=== PATIENT | female | born 1990 | race African-American/Black ===

== ENCOUNTER 2016-04-12 20:36 | Emergency (ER) | payer OTHER ==
--- NOTE | 2016-04-12 21:18 | PROVIDER DOCUMENTATION ---
HPI-General Adult - General Chief Complaint: Female Stated Complaint: SPOTTING BLEEDING Time Seen by Provider: 04/12/16 21:01 Source: patient Allergies/Adverse Reactions: Patient Allergies Allergy/AdvReac Type Severity Reaction Status Date / Time Penicillins Allergy ANAPHYLAXIS Verified 04/12/16 20:46 Sulfa (Sulfonamide Allergy ANAPHYLAXIS Verified 04/12/16 20:46 Antibiotics) [Sulfa(Sulfonamide Antibiotics)] Home Medications: Home Medication List Medication Instructions Recorded Confirmed Last Taken Type Pnv Comb.no58/Iron Bisgly/FA 1 each PO QAM 03/29/16 04/12/16 04/12/16 History [ Capsule] Nitrofurantoin [place]/Macrocryst 100 mg PO BID #14 capsule 04/13/16 Unknown Rx [Macrobid] - History of Present Illness -Gen Adult Nature of Presenting Problems: Pt. is 25 yof that presents with c/o abdominal cramping for one week and states that today she began to spot. Pt. reports she is and is unsure of how far along she is. Pt. reports her last BM was today and was normal for her. Pt. is a G3, P2. Pt. denies any other symptoms at time of exam. Location of Pain/Injury: reports: abdomen. denies: head, face, mouth, neck, chest, upper extremity, hand(s), back, pelvis, genitalia, lower extremity, feet , upper body, lower body, generalized Pain Radiation: reports: no radiation Quality of Pain: reports: cramping. denies: aching, burning, dull, fullness, indigestion, pressure, sharp, stabbing, tearing, throbbing, tightness Severity: reports: mild. denies: moderate, severe Onset/Duration: reports: gradual, 1 week ago Timing: reports: still present. denies: improving, gone now, resolved prior to arrival, intermittent, constant, changing over time, getting worse Context/Activities at Onset: reports: none. denies: recent emotional stress, recent physical stress, recent trauma history, possible bad food, cold exposure , out of country travel Modifying Factors: improves with: nothing Associated Symptoms: reports: genitourinary problems. denies: anxiety, arm pain , back/neck pain, chest pain, constipation, cough, diaphoresis, diarrhea, dizziness, EENT symptoms, fatigue, fever/chills, headaches, heartburn, joint pain, loss of appetite, malaise, muscle aches, sinus congestion/drainage, nausea , rash, seizure, shortness of breath, sensory/motor loss, pain with inspiration , swelling/mass in abdomen, syncope, vomiting, weakness, trouble walking Similar Symptoms Previously?: Yes Recently seen or treated by another doctor?: No Review of Systems - Adult - REVIEW OF SYSTEMS - ADULT Constitutional: reports: see HPI. denies: chills, fever, fatique Eyes: reports: see HPI. denies: discharge, blurred vision, double vision, eye pain Ears, Nose, Mouth & Throat: reports: see HPI. denies: ear discharge, ear pain, hearing loss, sinus problem, nose pain, loose teeth, mouth/dental pain, throat swelling Cardiovascular: reports: see HPI. denies: chest pain, irregular heart rate, orthopnea, syncope Respiratory: reports: see HPI. denies: chronic cough, cough, dyspnea on exertion, hemoptysis, shortness of breath, wheezing Gastrointestinal: reports: see HPI, abdominal pain. denies: hematemesis, constipation, difficulty swallowing, frequent heartburn, nausea, vomiting Genitourinary: reports: see HPI, other (Vaginal spotting). denies: dysuria, discharge, flank pain, hematuria, hesitency, urgency Musculoskeletal: reports: see HPI. denies: bone pain, back pain, joint pain, joint swelling, muscle aches, neck pain Integumentary: reports: see HPI. denies: hives, hair loss, itching, rash, skin thickening Neurological: reports: see HPI. denies: ataxia, headache/migraines, numbness, paresthesia, seizure, tremors Psychiatric: reports: see HPI. denies: anxiety, depression, emotional problems , insomnia, panic attacks, suicidal thoughts Endocrine: reports: see HPI. denies: change in skin pigment, cold intolerance, heat intolerance, polyuria Past History - Adult - PAST MEDICAL HISTORY-ADULT Review of Records: reports: Old Records Reviewed, Nursing Assessment Review, Medications Reviewed, Social history reviewed & non-contributory. Major Childhood Illnesses: reports: denies history Cardiovascular: reports: denies history Respiratory: reports: asthma Gastrointestinal: reports: denies history Obstetrical/Gynecological: reports: ovarian cysts Genitourinary: reports: denies history Musculoskeletal: reports: denies history Neurological: reports: denies history Endocrine/Immune: reports: denies history Other Conditions: reports: denies history - PRIOR SURGERIES/PROCEDURES Surgical/Procedure History: reports: hernia repair - IMMUNIZATION STATUS Childhood Immunizations: See Nurse Assessment Flu Vaccine: See Nurse Assessment - FAMILY HISTORY Family History: reviewed, not pertinent - SOCIAL HISTORY Smoking: non-smoker Physical Exam-General - PHYSICAL EXAM-ADULT Initial Vital Signs Reviewed: Yes - CONSTITUTIONAL General Appearance: alert, no apparent distress, thin. negative: obese, anxious , lethargic, slow to respond, obtunded, combative - EYES Eyes: PERRL/EOMI, pink conjunctivae. negative: conjuctival exudate, scleral icterus, subconjunctival hemorrhage - HEAD, EARS, NOSE, MOUTH & THROAT HENMT: normocephalic/atraumatic, moist mucous membranes. negative: angioedema, frontal tenderness, maxillary tenderness - NECK Neck: non-tender, full range of motion, supple, normal inspection. negative: lymphadenopathy, trachial deviation, thyromegaly - RESPIRATORY Respiratory: lungs clear, normal breath sounds. negative: crackles, rales, rhonchi, stridor, wheezing - CARDIOVASCULAR Cardiovascular: normal peripheral pulses, regular rate, rhythm, no edema, no JVD , no murmur. negative: extra beats, friction rub, irregularly irregular - CHEST (BREASTS) Chest/Breast: deferred - GASTROINTESTINAL (ABDOMEN) Abdominal Exam: normal bowel sounds, non tender, soft. negative: distended, guarding, rigid, rebound, tenderness, hernia, mass - GENITOURINARY Female Genitalia/Pelvic Exam: deferred Rectal Exam: deferred Hemoccult Exam: deferred - LYMPHATIC Lymphatic: no adenopathy. negative: axilla node tender, cervical node tenderness - MUSCULOSKELETAL Back Exam: normal inspection, no CVA tenderness, no vertebral tenderness. negative: ecchymosis, swelling, vertebral tenderness Extremity: normal range of motion, non-tender, normal gait, normal inspection. negative: deformity, erythema, inflammation, swelling, tenderness Peripheral Pulses: radial (R): 2+, radial (L): 2+ - SKIN Integumentary: normal color, normal turgor, warm/dry. negative: cyanosis, diaphoresis, ecchymosis, erythema, jaundice, mottled, pallor, petechiae, purpura , rash, swelling, tenderness - NEUROLOGIC Neurologic: grossly normal, no motor/sensory deficits. negative: aphasia, facial droop, focal weakness, motor weakness, sensory deficit - PSYCHIATRIC Psych/Mental Status: normal mood/affect, normal thought content, normal thought process, oriented x 3. negative: anxious, paranoid, tearful Progress - PLAN OF CARE/RESULTS Progress/Plan/Lab Results: Discussed results and plan of care with patient. Patient agrees with plan and verbalizes understanding. Vital Signs Temp Pulse Resp BP Pulse Ox 04/13/16 00:47 98.2 F 81 19 115/72 100 04/12/16 20:49 98.0 F 87 16 105/73 100 Penicillins Allergy (Verified 04/12/16 20:46) ANAPHYLAXIS Sulfa (Sulfonamide Antibiotics) [Sulfa(Sulfonamide Antibiotics)] Allergy ( Verified 04/12/16 20:46) ANAPHYLAXIS Pnv Comb.no58/Iron Bisgly/FA [ Capsule] 1 each PO QAM 03/29/16 Laboratory 04/12/16 04/12/16 04/12/16 21:15 21:15 21:15 WBC 5.90 RBC 3.88 L Hgb 11.5 L Hct 33.3 L MCV 85.8 MCH 29.6 MCHC 34.5 RDW Std Deviation 14.0 Plt Count 310 MPV 9.3 Immature Gran % (Auto) 0.0 Neut % (Auto) 40.9 L Lymph % (Auto) 45.9 [place] % (Auto) 8.3 Eos % (Auto) 4.2 Baso % (Auto) 0.7 Immature Gran # (Auto) 0.00 Neut # (Auto) 2.41 Lymph # (Auto) 2.71 [place] # (Auto) 0.49 Eos # (Auto) 0.25 Baso # (Auto) 0.04 Ser , Semi-Qnt 81126.0 Urine Source Urine Color Urine Turbidity Urine pH Ur Specific [place] Urine Protein Ur Glucose (Stick) Ur Ketones (Stick) Urine Blood Urine Nitrite Urine Bilirubin Urobilinogen Dipstick Urine Leukocytes Urine WBC (Auto) Urine RBC (Auto) U Epithel Cells (Auto) Urine Bacteria (Auto) ABO/Rh O POSITIVE RhIG Candidate? NO 04/12/16 21:15 WBC RBC Hgb Hct MCV MCH MCHC RDW Std Deviation Plt Count MPV Immature Gran % (Auto) Neut % (Auto) Lymph % (Auto) [place] % (Auto) Eos % (Auto) Baso % (Auto) Immature Gran # (Auto) Neut # (Auto) Lymph # (Auto) [place] # (Auto) Eos # (Auto) Baso # (Auto) Ser , Semi-Qnt Urine Source CLEAN CATCH Urine Color YELLOW Urine Turbidity HAZY Urine pH 6.0 Ur Specific [place] 1.026 Urine Protein TRACE A Ur Glucose (Stick) NEGATIVE Ur Ketones (Stick) TRACE A Urine Blood NEGATIVE Urine Nitrite NEGATIVE Urine Bilirubin NEGATIVE Urobilinogen Dipstick 4 A Urine Leukocytes MODERATE A Urine WBC (Auto) 10-20 A Urine RBC (Auto) <10 U Epithel Cells (Auto) <10 Urine Bacteria (Auto) 2+ ABO/Rh RhIG Candidate? Orders Category Date Time Status ED: Urine Bedside ORDERED Care 04/12/16 20:50 Active US OBS COMPLETE < 14 WKS [US] Stat Exams 04/12/16 23:00 Taken CBC WITH ELECTRONIC DIFF [HEME] Stat Lab 04/12/16 21:15 Completed QUANT TEST Stat Lab 04/12/16 21:15 Completed RHOGAM WORKUP [BBK] Stat Lab 04/12/16 21:15 Completed URINALYSIS W/POSS RFLX CULT [URINALYSIS] Stat Lab 04/12/16 21:15 Completed URINE CULTURE [RM] Routine Lab 04/12/16 21:43 Received CefTRIAXONE [Rocephin] Med 04/12/16 22:20 Discontinued 1 gm IM NOW ONE Lidocaine 1% Pf [Xylocaine-Mpf 1%] Med 04/12/16 22:20 Discontinued 5 ml INJ NOW ONE Laboratory Tests 04/12/16 04/12/16 04/12/16 21:15 21:15 21:15 WBC 5.90 RBC 3.88 L Hgb 11.5 L Hct 33.3 L MCV 85.8 MCH 29.6 MCHC 34.5 RDW Std Deviation 14.0 Plt Count 310 MPV 9.3 Immature Gran % (Auto) 0.0 Neut % (Auto) 40.9 L Lymph % (Auto) 45.9 [place] % (Auto) 8.3 Eos % (Auto) 4.2 Baso % (Auto) 0.7 Immature Gran # (Auto) 0.00 Neut # (Auto) 2.41 Lymph # (Auto) 2.71 [place] # (Auto) 0.49 Eos # (Auto) 0.25 Baso # (Auto) 0.04 Ser , Semi-Qnt 68560.0 Urine Source CLEAN CATCH Urine Color YELLOW Urine Turbidity HAZY Urine pH 6.0 Ur Specific [place] 1.026 Urine Protein TRACE A Ur Glucose (Stick) NEGATIVE Ur Ketones (Stick) TRACE A Urine Blood NEGATIVE Urine Nitrite NEGATIVE Urine Bilirubin NEGATIVE Urobilinogen Dipstick 4 A Urine Leukocytes MODERATE A Urine WBC (Auto) 10-20 A Urine RBC (Auto) <10 U Epithel Cells (Auto) <10 Urine Bacteria (Auto) 2+ ABO/Rh RhIG Candidate? 04/12/16 21:15 WBC RBC Hgb Hct MCV MCH MCHC RDW Std Deviation Plt Count MPV Immature Gran % (Auto) Neut % (Auto) Lymph % (Auto) [place] % (Auto) Eos % (Auto) Baso % (Auto) Immature Gran # (Auto) Neut # (Auto) Lymph # (Auto) [place] # (Auto) Eos # (Auto) Baso # (Auto) Ser , Semi-Qnt Urine Source Urine Color Urine Turbidity Urine pH Ur Specific [place] Urine Protein Ur Glucose (Stick) Ur Ketones (Stick) Urine Blood Urine Nitrite Urine Bilirubin Urobilinogen Dipstick Urine Leukocytes Urine WBC (Auto) Urine RBC (Auto) U Epithel Cells (Auto) Urine Bacteria (Auto) ABO/Rh O POSITIVE RhIG Candidate? NO - ULTRASOUND (By Radiology) 1 US Study: Transvaginal (Intrauterine estimated gestational age 5 weeks 6 days. No difinite subchorionic hemorrhage is identified. ([place]) US Results: see note Departure - Departure Time of Disposition Order: 01:01 DIAGNOSIS: UTI (urinary tract infection) Qualifiers: Urinary tract infection type: acute cystitis Hematuria presence: with hematuria Qualified Code(s): N30.01 - Acute cystitis with hematuria Qualifiers: Weeks of gestation: less than 8 weeks Qualified Code(s): Z3A.01 - Less than 8 weeks gestation of Abdominal pain Qualifiers: Abdominal location: unspecified location Qualified Code(s): R10.9 - Unspecified abdominal pain Disposition: HOME 01 Certified Medical Emergency: Emergent Condition: Stable Additional Instructions: Follow up with primary care physician Follow up with OB physician Take medications as directed Return to ED for any concerns or worsening of symptoms ED Follow Up Instructions: You have been treated by a care provider in the Emergency Department. These instructions are being provided to you so you can have an understanding of how to care for yourself upon discharge. Upon discharge from the Emergency Department, you are responsible for making arrangements for follow-up care by a physician of your choice. Take all prescribed medications as directed. Return to the Emergency Department immediately for any new or worsening symptoms. You may call the Physician Referral phone number at [phone] to obtain a list of Physicians who are taking new patients. Prescriptions: Nitrofurantoin [place]/Macrocryst [Macrobid] 100 mg PO BID #14 capsule Referrals: [place] MD [Primary Care Provider] - Brittney Mccormick MD [STAFF PHYSICIAN] - Attestation - Physician/ FANNY Attestation Patient care was provided by Advanced Practice Provider:: Yes Advanced Practice Provider:: Walter Sloan Advanced Practice Provider documentation review:: The Mid-level provider documentation, treatment plan and medical decision making was reviewed by the physician who agrees with all treatment and medical decision making by the MLP.
[2016-04-12 21:25] LABS: MANUAL DIFF NEEDED? NO; URINE MICRO REVIEW NEEDED? NO; URINE SOURCE CLEAN CATCH
[2016-04-12 21:30] LABS: BASO% 0.7 % (0.0-0.8); EOS# 0.25 X1000 (0.0-0.7); EOS% 4.2 % (0.0-10.0); HEMATOCRIT 33.3 % (37.0-47.0); HEMOGLOBIN 11.5 g/dL (12.0-16.0); LYMPH# 2.71 X1000 (1.2-3.4); LYMPH% 45.9 % (20.5-51.1); MCH 29.6 PG (27-31); MCHC 34.5 g/dL (33-37); MCV 85.8 FL (81-99); MONO# 0.49 X1000 (0.11-0.59); MONO% 8.3 % (1.7-9.3); MPV 9.3 FL (7.4-10.4); NEUT% 40.9 % (42.2-75.2); PLT 310 X1000 (130-400); RBC 3.88 XMIL (4.2-5.4)
[2016-04-12 21:36] LABS: BILIRUBIN URINE NEGATIVE (NEGATIVE); BLOOD URINE NEGATIVE (NEGATIVE); COLOR YELLOW; GLUCOSE URINE NEGATIVE (NEGATIVE); LEUKOCYTES URINE MODERATE (NEGATIVE); NITRITE URINE NEGATIVE (NEGATIVE); PROTEIN URINE TRACE mg/dL (NEGATIVE); SP GRAVITY URINE 1.026; TURBIDITY URINE HAZY (CLEAR); UR EPITHELIAL CELLS <10 /HPF (<10); URINE BACTERIA 2+ /HPF; URINE CULTURE NEEDED? YES; URINE RBC <10 /HPF (<10); UROBILINOGEN URINE 4 mg/dL (NORMAL)
[2016-04-12] MEDS ORDERED: XYLOCAINE-MPF 1% INJ ONE (22:20)
[2016-04-12] MEDS ORDERED: ROCEPHIN IM ONE (22:20)
[2016-04-13 00:48] VITALS: BP 115/72
--- NOTE | 2016-04-13 08:27 | Diag Imaging Result Document ---
PROCEDURE NAME: US OBS COMPLETE < 14 WKS - 04/12/2016 OB ULTRASOUND, ENDOVAGINAL SCAN ONLY: FINDINGS: The uterus is 8.4 x 6.5 x 4.8 cm and is retroverted. There is an intrauterine gestational sac with a sac dimension consistent with a gestational age of 5 weeks 6 days. There is identifiable cardiac activity at 122 beats per minute. There is a yolk sac. The crown- rump length was also measured which demonstrates an identical gestational age estimate, and the SAKINA is 12[birth year]08[birth year]2016. There are no adnexal masses or abnormal fluid collections. IMPRESSION: Viable intrauterine gestation at 5 weeks 6 days by ultrasound.
== END 2016-04-13 01:16 | disposition home or self-care (01) ==
LOC: ED 20:36
DX: O23.11 Infections of bladder in pregnancy, first trimester (principal); N30.01 Acute cystitis with hematuria; O26.891 Other specified pregnancy related conditions, first trimester; R10.9 Unspecified abdominal pain; O26.851 Spotting complicating pregnancy, first trimester; Z3A.01 Less than 8 weeks gestation of pregnancy; Z87.42 Personal history of other diseases of the female genital tract
CPT/HCPCS: 76801; 81001; 84702; 85025; 86900; 86901; 87088; J0696

== ENCOUNTER 2018-02-19 18:40 | Inpatient (IN) ==
[2018-02-19] MEDS ORDERED: NS 1,000 ML IV ONE ×2 (19:39→22:37)
[2018-02-19] MEDS ORDERED: ZOFRAN IV ONE (19:39)
[2018-02-19 20:25] LABS: BILIRUBIN URINE NEGATIVE (NEGATIVE); BLOOD URINE NEGATIVE (NEGATIVE); CLARITY CLEAR (CLEAR); COLOR YELLOW; GLUCOSE URINE NEGATIVE (NEGATIVE); KETONE URINE NEGATIVE (NEGATIVE); LEUKOCYTES URINE NEGATIVE (NEGATIVE); NITRITE URINE NEGATIVE (NEGATIVE); PH URINE 6.5; PROTEIN URINE NEGATIVE (NEGATIVE); SP GRAVITY URINE 1.015; URINE BACTERIA 1+ /HFP; URINE CAST NONE SEEN /LPF; URINE CRYSTAL NONE SEEN /HPF; URINE EPITHELIAL CELLS <10 /HPF (<10); URINE SOURCE CLEAN CATCH; URINE YEAST NONE SEEN /HPF; UROBILINOGEN URINE NORMAL
[2018-02-19 20:46] LABS: BASO# 0.05 X1000 (0.0-0.2); BASO% 3.2 % (0.0-0.8); EOS# 0.04 X1000 (0.0-0.7); EOS% 2.6 % (0.0-10.0); HEMATOCRIT 33.4 % (37.0-47.0); LYMPH# 0.93 X1000 (1.2-3.4); LYMPH% 59.6 % (20.5-51.1); MCH 31.3 PG (27-31); MCHC 32.9 g/dL (33-37); MCV 94.9 FL (81-99); MONO# 0.11 X1000 (0.11-0.59); MONO% 7.1 % (1.7-9.3); MPV 9.9 FL (7.4-10.4); NEUT% 27.5 % (42.2-75.2); PLT 371 X1000 (130-400); RBC 3.52 XMIL (4.2-5.4); RDW 14.9 % (11.5-14.5); WBC 1.56 X1000 (4.8-10.8)
[2018-02-19 20:55] LABS: NEUT# 0.43 X1000 (1.4-6.5)
[2018-02-19 20:59] LABS: AGAP 12; ALBUMIN 4.2 g/dL (3.5-5.0); ALKALINE PHOSPHATASE 87 U/L (32-104); BUN 11 mg/dL (8-22); CALCIUM 9.5 mg/dL (8.8-10.2); CHLORIDE 102 mmol/L (98-107); COSMO 274; CREATININE 0.4 mg/dL (0.5-0.9); ESTIMATED GFR > 60; GLUCOSE 86 mg/dL (70-104); GOT 36 U/L (10-30); GPT 39 U/L (10-36); POTASSIUM 4.3 mmol/L (3.5-5.1); SODIUM 138 mmol/L (136-145); TCO2 25 mmol/L (25-35); TOTAL PROTEIN 7.2 g/dL (6.3-8.3)
[2018-02-19] MEDS ORDERED: MAXIPIME 2 GM in NS 100 ML IV ONE (21:07)
[2018-02-19] MEDS ORDERED: BENADRYL IV ONE (21:08)
--- NOTE | 2018-02-19 21:11 | PROVIDER DOCUMENTATION ---
This chart was entered by John Benito Scribe, acting as scribe for Jw Curiel MD. HPI-Abdominal Pain/GI Problem - General Chief Complaint: Nausea/Vomiting Stated Complaint: N/V, NUMBNESS (CHEMO PT) Time Seen by Provider: 02/19/18 19:37 Source: patient Allergies/Adverse Reactions: Patient Allergies Allergy/AdvReac Type Severity Reaction Status Date / Time omeprazole [From Prilosec] Allergy HIVES Verified 02/19/18 20:45 Penicillins Allergy ANAPHYLAXIS Verified 02/19/18 20:45 Sulfa (Sulfonamide Allergy ANAPHYLAXIS Verified 02/19/18 20:45 Antibiotics) [Sulfa(Sulfonamide Antibiotics)] Home Medications: Home Medication List Medication Instructions Recorded Confirmed Last Taken Type Ondansetron [Zofran Odt] 4 mg PO Q8H PRN PRN #15 tab.rapdis 10/12/17 02/01/18 Unknown Rx Ondansetron Odt [Zofran 4 mg Odt] 4 mg PO Q6H PRN PRN 5 Days #20 02/01/1802/18/18 Rx tablet Promethazine [Phenergan] 25 mg PO Q6H PRN PRN 5 Days #20 02/01/18 02/19/1802/18 Rx tablet Naproxen 500 mg PO BID #10 tablet. 02/17/18 02/19/18 02/18/18 Rx Esomeprazole [Nexium] 40 mg PO DAILY 02/19/18 02/19/18 Unknown History - History of Present Illness-ABD Nature of Presenting Problems: Pt is a 27 y/o presents to the ED with N/V X 2days. Pt has Stage 2 breast cancer. Could not get Chemo today because of N/V. Last chemo treatment was 6 days ago. Pt says she is taken Zofran and Phenergan which is not helping. She states the N/V is new but did have it in the beginning with her chemo. Severity in ED: reports: moderate, severe Onset/Duration: reports: 2 days ago Timing: reports: still present, getting worse Activities at Onset: reports: none Exposure to sick contacts?: No Modifying Factors: improves with: nothing Associated Symptoms: denies: arm pain, cough, diaphoresis, diarrhea, sinus congestion/drainage, shortness of breath Review of Systems - Adult - REVIEW OF SYSTEMS - ADULT Constitutional: denies: chills, fever Eyes: reports: no symptoms reported Ears, Nose, Mouth & Throat: reports: no symptoms reported Cardiovascular: denies: chest pain, edema Respiratory: denies: cough, shortness of breath, wheezing Gastrointestinal: reports: nausea, vomiting. denies: abdominal pain Genitourinary: reports: no symptoms reported Musculoskeletal: reports: no symptoms reported Integumentary: reports: no symptoms reported Neurological: reports: no symptoms reported Psychiatric: reports: no symptoms reported Endocrine: reports: no symptoms reported Hematologic/Lymphatic: reports: no symptoms reported Allergic/Immunologic: reports: no symptoms reported All Other Systems: Reviewed and Negative Past History - Adult - PAST MEDICAL HISTORY-ADULT Review of Records: reports: Old Records Reviewed, Nursing Assessment Review, Medications Reviewed Major Childhood Illnesses: reports: denies history Cardiovascular: reports: denies history Respiratory: reports: asthma Gastrointestinal: reports: denies history Obstetrical/Gynecological: reports: ovarian cysts, other (stage II breast cancer ) Genitourinary: reports: denies history Musculoskeletal: reports: denies history Neurological: reports: denies history Psychiatric: reports: depression Endocrine/Immune: reports: cancer (Stage 2 left breast cancer) Other Conditions: reports: denies history - PRIOR SURGERIES/PROCEDURES Surgical/Procedure History: reports: BTL, indwelling device (port), hernia repair, breast (breast biopsy) - IMMUNIZATION STATUS Childhood Immunizations: See Nurse Assessment Flu Vaccine: See Nurse Assessment - FAMILY HISTORY Family History: reviewed, not pertinent - SOCIAL HISTORY Smoking: non-smoker Living Situation: family Physical Exam-General - PHYSICAL EXAM-ADULT Initial Vital Signs Reviewed: Yes - CONSTITUTIONAL General Appearance: alert, no apparent distress, thin - EYES Eyes: PERRL/EOMI, pink conjunctivae - HEAD, EARS, NOSE, MOUTH & THROAT HENMT: moist mucous membranes, normal ENT inspection, TMs normal, pharynx normal - NECK Neck: non-tender, full range of motion, supple - RESPIRATORY Respiratory: lungs clear, normal breath sounds, no pleuratic chest pain, no respiratory distress, no accessory muscle use - CARDIOVASCULAR Cardiovascular: normal peripheral pulses, regular rate, rhythm - GASTROINTESTINAL (ABDOMEN) Abdominal Exam: soft. negative: normal bowel sounds (decreased), distended, guarding, rigid, rebound, tenderness - MUSCULOSKELETAL Back Exam: normal inspection, no CVA tenderness, no vertebral tenderness Extremity: normal range of motion, non-tender, normal gait, normal inspection - SKIN Integumentary: normal color, normal turgor, warm/dry - NEUROLOGIC Neurologic: grossly normal, no motor/sensory deficits - PSYCHIATRIC Psych/Mental Status: normal mood/affect, normal thought content, normal thought process, oriented x 3 Progress - PLAN OF CARE/RESULTS Progress/Plan/Lab Results: Vital Signs - 8 hr 02/19/18 19:12 Temperature 97.7 F Pulse Rate 83 Respiratory Rate 20 Blood Pressure 105/84 O2 Sat by Pulse Oximetry 100 Orders Category Date Time Status CBC WITH DIFF [HEME] Stat Lab 02/19/18 19:39 Uncollected COMPREHENSIVE METABOLIC PANEL [CHEM] Stat Lab 02/19/18 19:39 Uncollected TEST-URINE [PREG] Stat Lab 02/19/18 19:[address] W/POSS RFLX CULT [URINALYSIS] Stat Lab 02/19/18 19:25 Received 0.9% Sodium Chloride Inj [Ns] 1,000 ml Med 02/19/18 19:39 Active IV 999 mls/hr Ondansetron [Zofran] Med 02/19/18 19:39 Discontinued 4 mg IV NOW ONE Result Diagrams: 02/19/18 20:30 02/19/18 20:30 - CONSULTS/PCP/HOSPITALIST Notification #1 *Consult/PCP/Hospitalist*: Hospitalist, Dr. Dodge Time Discussed: 21:07 Reason/Comments: HPI Consult Disposition: other (Transfer to [facility] for Oncology) #2 Consult: Hospitalist- [facility]- Dr Chao Time Discussed: 21:26 Reason/Comments: admission Consult Disposition: Admit (Accepts) Departure - Departure Date of Disposition Decision: 02/19/18 Time of Disposition Decision: 23:30 DIAGNOSIS: Breast cancer Qualifiers: Breast location: unspecified site of breast Estrogen receptor status: unspecified Patient sex: female Laterality: right Qualified Code(s): C50.911 - Malignant neoplasm of unspecified site of right female breast Neutropenia Qualifiers: Neutropenia type: secondary to cancer chemotherapy Qualified Code(s): D70.1 - Agranulocytosis secondary to cancer chemotherapy Disposition: ADMITTED INPATIENT 09 Certified Medical Emergency: Emergent Condition: Stable - Critical Care Note This patient required my direct & personal management of CC.: No Attestation - Physician/ FANNY Attestation Patient care was provided by Advanced Practice Provider:: No The physician spent face to face time with patient:: Yes Advanced Practice Provider documentation review:: Supervising physician onsite and consulted in the evaluation and care of this patient. The physician did have a face to face encounter with the patient. This chart was documented by the indicated scribe, (John Benito Scribe) and accurately reflects the services I performed and decisions made by me, Jw Curiel MD, as attested by the provider's signature.
[2018-02-19 21:15] LABS: LYMPHS 70 % (21-51); SEGS 30 % (42-75)
[2018-02-19] MEDS ORDERED: ZOFRAN IV PRN (22:37)
[2018-02-19] MEDS ORDERED: TYLENOL PO PRN (22:37)
[2018-02-19] MEDS ORDERED: MAXIPIME ONE (22:55)
[2018-02-19] MEDS ORDERED: NS 100 ML ONE (22:59)
[2018-02-20] MEDS ORDERED: PHENERGAN PO PRN (00:59)
[2018-02-20] MEDS ORDERED: COMPAZINE IV PRN (01:32)
--- NOTE | 2018-02-20 05:29 | HISTORY AND PHYSICAL ---
CHIEF COMPLAINT: Nausea, vomiting. HISTORY OF PRESENT ILLNESS: This is an unfortunate 27-year-old female who has had nausea and vomiting times 2 days. She could not get her chemotherapy today or yesterday related to nausea and vomiting. Last chemotherapy was around 6 days ago. She is being treated for stage 2 breast cancer which is hormone positive HER-2 negative breast cancer. She had nausea and vomiting when she first started the chemotherapy but has not persisted and then started again in the last couple of days. Was not able to be controlled with Zofran and Phenergan so she came into the [facility]. Laboratory data showed the patient was noted to be neutropenic. She will be treated prophylactically with Maxipime and placed on observation status on the medical floor at [facility]. PAST MEDICAL HISTORY: Stage 2 hormone positive HER-2 negative breast cancer. She is being treated with chemotherapy by Dr. Rosen. PREVIOUS SURGICAL HISTORY: PowerPort placement, hernia repair and tubal ligation. ALLERGIES: Penicillin and sulfa. HOME MEDICATIONS: A list has not been compiled. We will restart when appropriate. SOCIAL HISTORY: No alcohol, tobacco or illicit drug use or abuse. FAMILY HISTORY: Negative for malignancies and hematologic disorders. REVIEW OF SYSTEMS: Fourteen point review of systems conducted with the patient. Pertinent positives listed above in the HPI. All other systems reviewed and found to be negative. PHYSICAL EXAMINATION: VITAL SIGNS: Temperature 97.7, pulse 83, respirations 20, blood pressure 105/84, oxygen 100% on room air. GENERAL: Thin female lying in the medical floor bed. She is in no acute distress. HEENT: Head is atraumatic, normocephalic. Pupils equal, round, reactive to light. Extraocular eye movement is intact. Sclerae are anicteric. Conjunctiva is mildly pale. Oral mucosa is mildly dry. NECK: Supple. No JVD. No thyromegaly. Trachea is midline. No cervical lymphadenopathy. CARDIAC: S1, S2 appreciated. No murmurs, gallops, or rubs. LUNGS: Clear to auscultation bilaterally. No rhonchi, wheezes, rales. ABDOMEN: Soft, nondistended, nontender. Bowel sounds present all 4 quadrants, normoactive. No pulsatile mass. No organomegaly. EXTREMITIES: No clubbing, cyanosis, or edema. Two-plus pedal pulses bilaterally. GENITOURINARY: No bladder distention. Patient voids. Otherwise deferred. NEUROLOGICAL: Alert and oriented times 3. No focal deficits. Otherwise nonfocal examination. SKIN: Warm, dry and intact. No acute lesions or rash. LABORATORY DATA: WBC 1.56. Hemoglobin 11. Hematocrit 33.4. Neutrophil count 27.5. Chemistry panel within normal limits. AST 36. ALT 39. Urine unremarkable. ASSESSMENT AND PLAN: 1. Neutropenia. We will consult Dr. Rosen. We will treat prophylactically with Maxipime. 2. Nausea and vomiting. We will continue Zofran but we will add Compazine p.r.n. IV. Normal saline at 100 mL an hour. 3. Early stage hormone positive HER-2 negative breast cancer. Patient was unable to get her chemotherapy yesterday. We will consult Dr. Rosen. 4. Mild fluid volume depletion. As noted above, we will start fluids. Further recommendations per patient clinical course. Dictated by MELISSA Chow for Rk Anthony MD cc: MELISSA Chow MD
--- NOTE | 2018-02-20 06:01 | PROGRESS NOTE ---
DATE: 02/20/2018 This is a [id number] encounter for . Lillian Peck, who is a 27-year-old female with a history of breast cancer, and she is present with nausea and vomiting. She was initially admitted to [facility], but was found to be neutropenic and has been referred down to [facility]. She is afebrile. Her white count as well is 1.56 with a neutrophil of 0.43. 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 Follow up on patient's white count. We will defer decision about using colony stimulating factor to the hematology team. cc: Rk Anthony MD
[2018-02-20 07:24] LABS: BASO# 0.03 X1000 (0.0-0.2); BASO% 1.1 % (0.0-0.8); EOS# 0.09 X1000 (0.0-0.7); EOS% 3.4 % (0.0-10.0); HEMATOCRIT 27.2 % (37.0-47.0); HEMOGLOBIN 8.8 g/dL (12.0-16.0); LYMPH# 1.19 X1000 (1.2-3.4); LYMPH% 45.6 % (20.5-51.1); MCH 30.9 PG (27-31); MCHC 32.4 g/dL (33-37); MCV 95.4 FL (81-99); MONO# 0.21 X1000 (0.11-0.59); MPV 9.5 FL (7.4-10.4); NEUT# 1.09 X1000 (1.4-6.5); NEUT% 41.9 % (42.2-75.2); PLT 355 X1000 (130-400); RBC 2.85 XMIL (4.2-5.4); RDW 14.7 % (11.5-14.5); WBC 2.61 X1000 (4.8-10.8)
[2018-02-20 07:43] LABS: AGAP 11; BUN 11 mg/dL (8-22); CHLORIDE 106 mmol/L (98-107); COSMO 279; CREATININE 0.3 mg/dL (0.5-0.9); ESTIMATED GFR > 60; GLUCOSE 95 mg/dL (70-104); MAGNESIUM 1.9 mg/dL (1.5-2.7); POTASSIUM 3.6 mmol/L (3.5-5.1); SODIUM 140 mmol/L (136-145); TCO2 23 mmol/L (25-35)
[2018-02-20] MEDS: NORCO-7.5 PO PRN ×2 (07:46→16:06)
[2018-02-20] MEDS: MAXIPIME 1 GM in NS 50 ML IV SCH ×2 (09:26→20:50)
[2018-02-20] MEDS: NEXIUM PO SCH (09:30)
[2018-02-20] MEDS: BENADRYL IV SCH ×2 (09:31→20:50)
--- NOTE | 2018-02-20 12:55 | PROGRESS NOTE ---
DATE: 02/20/2018 INTERVAL HISTORY: The patient's nausea and vomiting essentially resolved at this point. She denies fever, chills, diarrhea. She says she has got her appetite back and would like to try eating something. No acute events overnight. REVIEW OF SYSTEMS: A 12-point review of systems is negative except as per interval history. LABORATORY DATA: WBC 2.6, hemoglobin 8.8, hematocrit 27.2, platelets 355,000. Neutrophil percentage 41.9. Absolute neutrophil count 1090. Sodium 140, potassium 3.6, chloride 106, bicarb 23. BUN 11, creatinine 0.3, glucose 95. Magnesium 1.9. Urinalysis unremarkable. PHYSICAL EXAMINATION: General: In no acute distress. Vital Signs: As above. HEENT: Normocephalic, atraumatic. Moist mucous membranes. No cervical adenopathy. Cardiovascular: Regular rate and rhythm. No murmurs, rubs, or gallops. Pulmonary: Clear to auscultation bilaterally. No wheezing, rales, or rhonchi. Abdomen soft, nontender, nondistended. Bowel sounds positive. Extremities: 2+ pulses. No clubbing, cyanosis, or edema. Neurologic: Cranial nerves 2-12 grossly intact. No focal or motor sensory deficits. Psychiatric: Normal mood, affect. Awake, alert, oriented x3. Skin: No new rashes or lesions noted. ASSESSMENT AND PLAN: 1. Nausea and vomiting, viral gastroenteritis versus chemotherapy side effect: Now resolved. Will continue fluids one more day and symptomatic treatment if symptoms recur. 2. Neutropenia improving spontaneously. Given worsening anemia, we will recheck blood counts in the afternoon but no signs or symptoms of bleeding. Absolute neutrophil count much improved from 430 to 1090 today. If she continues to improve, then she may be able to go home tomorrow. 3. Early stage hormone positive, HER-2/mendel negative breast cancer: Patient follows with Dr. Rosen. Received chemo 2 days ago. Will follow up with oncologist as an outpatient. 4. Dehydration, essentially resolved with IV fluids. Continue IV fluids one more day. cc: Rk Anthony MD
[2018-02-20 13:31] LABS: HEMATOCRIT 29.5 % (37.0-47.0); HEMOGLOBIN 9.6 g/dL (12.0-16.0)
[2018-02-20] MEDS: TYLENOL PO PRN (20:49)
[2018-02-21] MEDS: NORCO-7.5 PO PRN ×4 (00:28→21:44)
[2018-02-21] MEDS: TYLENOL PO PRN (02:41)
[2018-02-21 06:50] LABS: BASO# 0.02 X1000 (0.0-0.2); BASO% 0.8 % (0.0-0.8); EOS% 3.8 % (0.0-10.0); HEMATOCRIT 29.9 % (37.0-47.0); HEMOGLOBIN 9.8 g/dL (12.0-16.0); LYMPH# 1.28 X1000 (1.2-3.4); LYMPH% 49.2 % (20.5-51.1); MCHC 32.8 g/dL (33-37); MCV 94.6 FL (81-99); MONO# 0.16 X1000 (0.11-0.59); MONO% 6.2 % (1.7-9.3); MPV 9.3 FL (7.4-10.4); NEUT# 1.04 X1000 (1.4-6.5); PLT 375 X1000 (130-400); RBC 3.16 XMIL (4.2-5.4); RDW 14.4 % (11.5-14.5)
[2018-02-21 07:33] LABS: AGAP 11; BUN 5 mg/dL (8-22); CALCIUM 9.2 mg/dL (8.8-10.2); CHLORIDE 104 mmol/L (98-107); COSMO 275; CREATININE 0.4 mg/dL (0.5-0.9); ESTIMATED GFR > 60; GLUCOSE 100 mg/dL (70-104); POTASSIUM 3.7 mmol/L (3.5-5.1); SODIUM 139 mmol/L (136-145); TCO2 24 mmol/L (25-35)
[2018-02-21] MEDS: NEXIUM PO SCH (08:08)
[2018-02-21] MEDS: MAXIPIME 1 GM in NS 50 ML IV SCH ×2 (08:08→21:05)
[2018-02-21] MEDS: BENADRYL IV SCH ×2 (08:09→21:05)
--- NOTE | 2018-02-21 13:36 | PROGRESS NOTE ---
DATE: 02/21/2018 INTERVAL HISTORY: Patient still with no further nausea or vomiting. Does complain about headaches, which have been a chronic issue for her. Afebrile with no other acute events overnight. No new complaints. Tolerating diet well. REVIEW OF SYSTEMS: Twelve point review of system negative except as per interval history. LABS: WBC 2.6, hemoglobin 9.8, hematocrit 29.9, platelets 375,000. Basic metabolic panel unremarkable. VITALS: T-max 98.2 degrees, pulse 75, respirations 16, blood pressure 121/80, O2 saturation 100% on room air. OBJECTIVE: General: No acute distress. Vitals: As above. HEENT: Normocephalic, atraumatic. Moist mucous membranes. Neck: No cervical adenopathy. Cardiovascular: Regular rate and rhythm. No murmurs, rubs, or gallops. Pulmonary: Clear to auscultation bilaterally. No wheezing, rales, or rhonchi. Abdomen: Soft, nontender, and nondistended. Bowel sounds positive. Extremities: Peripheral pulses intact. No clubbing, cyanosis, or edema. Neurologic: Cranial nerves 2-12 are grossly are grossly intact. No focal motor or sensory deficits. Psychiatric: Normal mood and affect. Awake, alert, oriented x3. Skin: No new rashes or lesions noted. ASSESSMENT AND PLAN: 1. Nausea and vomiting, likely viral gastroenteritis versus chemotherapy side-effect, now resolved. Tolerating diet. Will discontinue intravenous fluids. 2. Neutropenia improved from admission and stable from yesterday. Anemia also stable and platelets slightly improved. No sign of active infection. Will await oncology recommendations, but can likely discontinue antibiotics and discharge home once cleared by Oncology. Continue to monitor blood counts. 3. Dehydration, resolved at this point, tolerating p.o. as above. 4. Headache. Given duration, this is likely migraines. We will try patient on sumatriptan. 5. Hormone positive, HER-2/mendel negative breast cancer. Patient following with Dr. Rosen. Received chemo 2 days prior to admission. Awaiting further Oncology recommendations, and anticipate follow-up with Oncology as an outpatient. cc: Rk Anthony MD
[2018-02-21] MEDS: IMITREX PO PRN ×2 (14:20→21:05)
--- NOTE | 2018-02-21 21:53 | HEMO/ONC CONSULTATION ---
DATE: 02/20/2018 ADMITTING PHYSICIAN: Dr. Anthony . REQUESTING PHYSICIAN: Dr. Anthony. We appreciate this consult. CHIEF COMPLAINT: Breast cancer. HISTORY OF PRESENT ILLNESS: Ms Peck is a 27-year-old female with a history of locally advanced infiltrating ductal carcinoma. The patient is on Taxol weekly and is scheduled for cycle #11 on 02/26/2018. The patient has had somewhat poor tolerance to treatment with chemotherapy with frequent bouts of nausea, vomiting and fluid depletion, the patient presented to clinic the day of admission with complaint of nausea, vomiting and inability to keep anything down by mouth. The patient was given IV fluids and reported that she felt well and went home and apparently the patient states that the nausea and vomiting became so bad that she presented to [facility] Emergency Department. She states that the nausea and vomiting was not controlled by Zofran and Phenergan at home. The patient denies any fever or chills. We are consulted as the patient is well known to us. PAST MEDICAL HISTORY: Stage II hormone positive HER-2 negative breast cancer currently treated with Taxol by Dr. Rosen. PAST SURGICAL HISTORY: 1. Power port placement. 2. Hernia repair. 3. Tubal ligation. FAMILY HISTORY: Negative for any malignancies or hematologic disorders. SOCIAL HISTORY: The patient does not use tobacco, alcohol or illicit drugs. MEDICATIONS ON ADMISSION: 1. Zofran. 2. Phenergan. ALLERGIES: Penicillin and sulfa. REVIEW OF SYSTEMS: A 14 point review of systems was obtained and is negative except for as mentioned in HPI. PHYSICAL EXAM: Ms. Peck is a 27-year-old female lying supine in bed in no immediate distress.Vital Signs: Temperature 98.2 degrees, blood pressure 103/70, heart rate 77, respirations 18, O2 saturation 98% on room air. HEENT: Normocephalic, atraumatic. Mucous membranes are pale and somewhat dry. Sclerae anicteric. Extraocular movements intact. Neck: Supple. Lungs: Clear to auscultation bilaterally, chest expansion equal bilaterally. CV: S1, S2 is heard. No murmurs, rubs or gallops. Abdomen: Nondistended. Extremities: No clubbing, cyanosis or edema. Dermatologic: No rashes, bruises or lesions. Neuro: The patient is awake, alert, oriented x3. She has no focal deficit. LABORATORY DATA: Hemoglobin 8.8, hematocrit 27.2, white blood cell count 2.61, platelets 355,000, ANC 1.09, sodium 140, potassium 3.6, chloride 106, CO2 is 23, BUN 11, creatinine 0.3, glucose 95, calcium 9.0, magnesium 1.9. UA is negative for UTI. ASSESSMENT AND PLAN: 1. Neutropenia improved from admission. ANC is currently 1.09, would continue Maxipime prophylactically, we will continue to monitor CBC. 2. Intractable nausea and vomiting currently on Zofran and Compazine with good control of symptoms. 3. Fluid depletion. The patient remains on IV fluids at this time. 4. Locally advanced infiltrating ductal carcinoma on Taxol weekly for cycle 11 on 02/26/2018. We will hold currently until the patient's acute illness improves. 5. Chemotherapy-induced anemia. Hemoglobin is currently 8.8. We will continue to monitor and transfuse if the patient's hemoglobin drops below 8.0 or the setting of active bleeding. 6. We will follow with you make further recommendations pending outcomes. The above reflects the history exam assessment plan of Dr. Rosen. Dictated by MELISSA Palomares for Luis Rosen MD cc: MELISSA Palomares MD Clement Okinedo, MD
[2018-02-22] MEDS: MAXIPIME 1 GM in NS 50 ML IV SCH ×2 (08:51→19:58)
[2018-02-22] MEDS: BENADRYL IV SCH ×2 (08:52→19:57)
[2018-02-22] MEDS: NEXIUM PO SCH (08:52)
[2018-02-22 10:47] LABS: BASO# 0.05 X1000 (0.0-0.2); EOS# 0.07 X1000 (0.0-0.7); EOS% 2.8 % (0.0-10.0); HEMATOCRIT 32.8 % (37.0-47.0); HEMOGLOBIN 10.9 g/dL (12.0-16.0); LYMPH# 1.08 X1000 (1.2-3.4); LYMPH% 43.9 % (20.5-51.1); MCHC 33.2 g/dL (33-37); MCV 93.2 FL (81-99); MONO# 0.31 X1000 (0.11-0.59); MONO% 12.6 % (1.7-9.3); MPV 9.3 FL (7.4-10.4); NEUT# 0.95 X1000 (1.4-6.5); NEUT% 38.7 % (42.2-75.2); PLT 394 X1000 (130-400); RBC 3.52 XMIL (4.2-5.4); RDW 14.3 % (11.5-14.5); WBC 2.46 X1000 (4.8-10.8)
--- NOTE | 2018-02-22 13:36 | PROGRESS NOTE ---
DATE: 02/22/2018 INTERVAL HISTORY: The patient still with some headache, but somewhat improved with sumatriptan yesterday. No further nausea, vomiting. Afebrile. Still no signs or symptoms of active infection. REVIEW OF SYSTEMS: Twelve point review of systems negative, except as per interval history. LABS: White count 2.46, hemoglobin 10.9, hematocrit 32.8, platelets 394. Absolute neutrophil count 950. VITALS: T-max 98.2 degrees, pulse 102, respirations 16, blood pressure 105/72, O2 saturation 100% on room air. PHYSICAL EXAMINATION: General: No acute distress. Vitals: As above. HEENT: Normocephalic, atraumatic. Moist mucous membranes. No cervical adenopathy. Cardiovascular: Regular rate and rhythm. No murmurs, rubs, or gallops. Pulmonary: Clear to auscultation bilaterally. Abdomen: Soft, nontender, nondistended. Bowel sounds positive. Extremities: Peripheral pulses intact. No clubbing, cyanosis, or edema. Neurologic: Cranial nerves 2-12 grossly intact. No focal deficits identified. Psychiatric: Normal mood and affect. Awake, alert, oriented x3. Skin: No new rashes or lesions noted. ASSESSMENT AND PLAN: 1. Nausea and vomiting, likely viral gastroenteritis versus chemotherapy side effect. Now resolved and tolerating diet. Off of intravenous fluids. 2. Severe neutropenia on admission, now mild to moderate. Significantly improved from admission, but essentially stable for the last couple days. No signs of active infection. Awaiting further Oncology records. Hopefully can transition to oral antibiotic prophylaxis and discharge home soon. 3. Dehydration, resolved. Tolerating oral well. 4. Likely migraines. Some slight improvement with sumatriptan. Still headache. Will increase dose of sumatriptan and monitor. 5. Hormone positive, HER2/AMOS negative breast cancer. The patient following with Dr. Rosen. Received chemotherapy 2 days prior to admission. Awaiting further Oncology recommendations.
[2018-02-23] MEDS: IMITREX PO PRN ×2 (00:06→01:58)
[2018-02-23] MEDS: BENADRYL IV SCH ×3 (01:04→20:41)
[2018-02-23] MEDS: MAXIPIME 1 GM in NS 50 ML IV SCH ×3 (01:04→20:41)
[2018-02-23] MEDS: NORCO-7.5 PO PRN ×2 (01:45→20:41)
[2018-02-23 07:34] LABS: BASO# 0.04 X1000 (0.0-0.2); BASO% 1.4 % (0.0-0.8); EOS# 0.11 X1000 (0.0-0.7); HEMATOCRIT 33.3 % (37.0-47.0); HEMOGLOBIN 10.9 g/dL (12.0-16.0); LYMPH# 1.62 X1000 (1.2-3.4); LYMPH% 58.7 % (20.5-51.1); MCHC 32.7 g/dL (33-37); MCV 94.6 FL (81-99); MONO# 0.28 X1000 (0.11-0.59); MONO% 10.1 % (1.7-9.3); MPV 9.2 FL (7.4-10.4); NEUT# 0.71 X1000 (1.4-6.5); NEUT% 25.8 % (42.2-75.2); PLT 379 X1000 (130-400); RBC 3.52 XMIL (4.2-5.4); RDW 14.1 % (11.5-14.5); WBC 2.76 X1000 (4.8-10.8)
[2018-02-23] MEDS: NEXIUM PO SCH (10:36)
--- NOTE | 2018-02-23 11:16 | PROGRESS NOTE ---
DATE: 02/23/2018 INTERVAL HISTORY: The patient's headache is much improved with increased dose of sumatriptan yesterday. No other new complaints. No acute events overnight. Remains afebrile. REVIEW OF SYSTEMS: A 12 point review of systems is negative except as per interval history. LABS: WBC 2.76, hemoglobin 10.9, hematocrit 33.3, platelets 379,000, neutrophil percentage 25.8, absolute neutrophil count is 710. VITAL SIGNS: T-max 98.3 degrees, pulse 81, respirations 17, blood pressure 109/76, O2 saturation 100% on room air. PHYSICAL EXAMINATION: General: No acute distress. Vitals: As above. HEENT: Normocephalic, atraumatic. Moist mucous membranes. No cervical adenopathy. Cardiovascular: Regular rate and rhythm. No murmurs, rubs, or gallops. Pulmonary: Clear to auscultation bilaterally. Abdomen: Soft, nontender, nondistended. Bowel sounds positive. Extremities: Peripheral pulses intact. No clubbing, cyanosis, or edema. Neurologic: Cranial nerves 2-12 grossly intact. No focal motor or sensory deficits. Psychiatric: Normal mood and affect. Asleep but easily arousable. Oriented x3. Skin: No new rashes or lesions noted. ASSESSMENT AND PLAN: 1. Nausea and vomiting, viral gastroenteritis versus chemotherapy side effects. Remains resolved and tolerating oral intake well. Off of intravenous fluids. 2. Severe neutropenia on admission, now moderate. White blood cell count improved from yesterday but neutrophil percentage down, referring that there is slight loss of neutrophils. Remains in the moderate neutropenia range. Still no signs of active infection. Oncology following and awaiting further recommendations from them. Anticipate discharge once cleared by oncology. 3. Dehydration, resolved. Tolerating oral intake well. 4. Migraine headaches, much improved with increased dose of sumatriptan. We will plan on giving her a prescription for sumatriptan on discharge. Considered starting Topamax for prophylaxis but another agent may be better as she has intermittently had issues with oral intake with chemotherapy and Topamax has been associated with weight loss. 5. Hormone positive, HER2/mendel negative breast cancer. Patient following with Dr. Rosen. Received chemotherapy 2 days prior to admission. Awaiting further oncology recommendations.
[2018-02-24] MEDS: NORCO-7.5 PO PRN (04:48)
[2018-02-24] MEDS: BENADRYL IV SCH (09:07)
[2018-02-24] MEDS: MAXIPIME 1 GM in NS 50 ML IV SCH (09:07)
[2018-02-24] MEDS: NEXIUM PO SCH (09:07)
[2018-02-24 09:35] LABS: BASO# 0.04 X1000 (0.0-0.2); BASO% 1.8 % (0.0-0.8); EOS# 0.12 X1000 (0.0-0.7); EOS% 5.3 % (0.0-10.0); HEMATOCRIT 34.2 % (37.0-47.0); HEMOGLOBIN 11.2 g/dL (12.0-16.0); LYMPH# 1.37 X1000 (1.2-3.4); LYMPH% 60.1 % (20.5-51.1); MCH 30.9 PG (27-31); MCHC 32.7 g/dL (33-37); MCV 94.5 FL (81-99); MONO# 0.26 X1000 (0.11-0.59); MONO% 11.4 % (1.7-9.3); MPV 9.1 FL (7.4-10.4); NEUT# 0.49 X1000 (1.4-6.5); NEUT% 21.4 % (42.2-75.2); PLT 373 X1000 (130-400); RBC 3.62 XMIL (4.2-5.4); RDW 13.7 % (11.5-14.5); WBC 2.28 X1000 (4.8-10.8)
[2018-02-24 09:39] LABS: EOS 4 % (1-10); LYMPHS 70 % (21-51); SEGS 26 % (42-75)
--- NOTE | 2018-02-24 14:08 | PROGRESS NOTE ---
DATE: 02/24/2018 INTERVAL HISTORY: No acute events overnight. No new complaints. Afebrile. REVIEW OF SYSTEMS: Twelve-point review of systems negative except as per interval history. LABORATORY DATA: WBC 2.2, hemoglobin 11.2, hematocrit 34.2, platelets 373, neutrophil percent is 21.4, absolute neutrophil count 490. OBJECTIVE: General: No acute distress. Vital Signs: As above. HEENT: Normocephalic, atraumatic. Moist mucous membranes. Neck: No cervical adenopathy. Cardiovascular: Regular rate and rhythm. No murmurs, rubs, or gallops. Pulmonary: Clear to auscultation. Abdomen: Soft, nontender, nondistended. Bowel sounds positive. Extremities: Peripheral pulses intact. No clubbing, cyanosis, or edema. Neurologic: Cranial nerves II through XII grossly intact. No focal motor or sensory deficits. Psychiatric: Normal mood and affect. Awake, alert, and oriented x3. Skin: No new rashes or lesions noted. ASSESSMENT AND PLAN: 1. Nausea and vomiting, viral gastroenteritis versus chemotherapy side effect. Remains resolved and tolerating p.o. well. 2. Severe neutropenia. Initially improved spontaneously and anemia and thrombocytopenia remain improved but neutrophil count decreasing today back into the severe neutropenia range. Awaiting oncology recommendations, but suspect the patient will need GCSF. 3. Dehydration, resolved. Tolerating p.o. well. 4. Migraine headaches, much improved with abortive therapy with moderate dose sumatriptan. Continue monitoring. 5. Hormone positive HER-2/mendel negative breast cancer. The patient followed by Dr. Rosen. She received chemotherapy 2 days prior to admission, we are awaiting further oncology recommendations. [facility]
[2018-02-24 15:59] VITALS: BP 89/62
--- NOTE | 2018-02-25 16:17 | DISCHARGE SUMMARY ---
ADMISSION DATE: 02/20/2018 DISCHARGE DATE: 02/24/2018 CONSULTS: Hematology-Oncology. LABS: Initial WBC 1.5. Discharge WBC 2.2. Initial hemoglobin and hematocrit 11 and 33.4. Discharge similar. Chemistries unremarkable. DISCHARGE DIAGNOSES: 1. Nausea and vomiting, viral gastroenteritis versus chemotherapy side effects. 2. Severe neutropenia. 3. Hormone positive, HER-2/NU negative breast cancer. 4. Dehydration. 5. Migraine headaches. HOSPITAL COURSE: The patient presented initially with complaints of intractable nausea and vomiting. She had received chemotherapy 2 days before, frequently had nausea and vomiting symptoms after that. Patient's symptoms resolved spontaneously with supportive treatments. This was felt to represent viral gastroenteritis versus more likely chemotherapy side effect. She was mildly dehydrated clinically, but her kidney function was stable. She was hydrated aggressively and rapidly became able to tolerate p.o. On initial laboratory evaluation, she was found to be neutropenic with white count of 1.5, neutrophil percentage of 27.5, and absolute neutrophil count of approximately 430, which put her into the severe neutropenia range. No evidence of acute infection aside from nausea and vomiting was identified. She was initially placed on Merrem for prophylaxis, but this was later discontinued with no ill effect. Her white count and neutrophils improved significantly. There was a slight dip just before discharge. Hematology-Oncology thought this was not significant enough to keep her in the hospital. She did have significant migraine headaches during her stay. She was given sumatriptan 25 with some relief. This was increased to 50, which provided substantial relief for her and she was provided a prescription for this on discharge. She was discharged in stable condition to follow up with Hematology-Oncology for repeat labs and further treatment. DISCHARGE PHYSICAL EXAMINATION: Vital Signs: Temperature 98.1, pulse 78, respirations 16, blood pressure 89/62, O2 saturation 100% on room air. General: No acute distress. Vitals: As above. HEENT: Normocephalic, atraumatic. Moist mucous membranes. Neck: No cervical adenopathy. Cardiovascular: Regular rate and rhythm. No murmurs, rubs, or gallops. Pulmonary: Clear to auscultation bilaterally. Abdomen: Soft. Nontender, nondistended. Bowel sounds positive. Extremities: Peripheral pulses intact. No clubbing, cyanosis, or edema. Neurologic: Cranial nerves 2-12 grossly intact. No focal motor or sensory deficits. Psychiatric: Normal mood and affect. Awake, alert, oriented x3. Skin: No new rashes or lesions identified. DISCHARGE DIET: Neutropenic. DISCHARGE MEDICATIONS: Nexium 40 mg p.o. daily, Zofran ODT 4 mg q.8 hours p.r.n., promethazine 25 mg p.o. q.6 hours, sumatriptan 50 mg p.o. q.2 hours p.r.n., but no more than 4 doses in 1 day and naproxen as previously prescribed at home. FOLLOWUP AND PLAN: Patient discharged home. Patient remained on neutropenic precautions with no sick family members allowed near by. All food to be fully cooked. No fresh ugtierrez. The patient to follow up with Oncology for repeat labs and further treatment of her underlying malignancy. Patient to followup with PCP. Patient given script for sumatriptan as it seems to be quite effective for her for migraines. TIME SPENT: Greater than 30 minutes spent arranging discharge and counseling patient.
== END 2018-02-24 19:00 | disposition home or self-care (01) | DRG 392 ==
LOC: P.ED 18:40 → 3N 18:40 → OBSVTOIN 23:56 → SUATTDRO 23:56 → INTOOBSV 23:56
PROVIDERS: ATTEND Internal Medicine
CPT/HCPCS: 80048; 80053; 81001; 81025; 83735; 85014; 85018; 85025; 94761; 96361; 96365; 96372; 96375; 99282; 99285; A9270; J0692; J0780; J1200; J1885; J2405; J7030

== ENCOUNTER 2018-04-01 06:09 | Inpatient (IN) ==
[2018-04-01] MEDS ORDERED: MORPHINE IV ONE (06:34)
--- NOTE | 2018-04-01 06:38 | PROVIDER DOCUMENTATION ---
HPI-General Adult - General Chief Complaint: General Adult Stated Complaint: feet numbness,extremity pain Time Seen by Provider: 04/01/18 06:23 Source: patient, family Allergies/Adverse Reactions: Patient Allergies Allergy/AdvReac Type Severity Reaction Status Date / Time omeprazole [From Prilosec] Allergy HIVES Verified 03/09/18 07:44 Penicillins Allergy ANAPHYLAXIS Verified 03/09/18 07:44 Sulfa (Sulfonamide Allergy ANAPHYLAXIS Verified 03/09/18 07:44 Antibiotics) [Sulfa(Sulfonamide Antibiotics)] Home Medications: Home Medication List Medication Instructions Recorded Confirmed Last Taken Type Promethazine [Phenergan] 25 mg PO Q6H PRN PRN 5 Days #20 02/01/18 03/09/1802/18 Rx tablet Sumatriptan [Imitrex] 50 mg PO Q2H PRN PRN #30 tab 02/24/18 03/09/18 Unknown Rx Hydrocodone/Acetaminophen [[place] 1 - 2 ea PO Q3-4H PRN PRN #20 tab 03/09/18 Unknown Rx 5-325 Tablet] Lansoprazole 30 mg PO DAILY #30 capsule. 03/29/18 Unknown Rx Ondansetron Odt [Zofran Odt] 4 mg PO Q6H PRN PRN #25 tab 03/29/18 Unknown Rx - History of Present Illness -Gen Adult Nature of Presenting Problems: Pt presents with bilateral feet numbness, x 2 days, denies prior, constant, no radiation, pmh of breast cancer, recently stopped chemo due to low WBCs, pt denies f/c, akers, cp, sob, cough, ap, n/v/d. Pt denies pmh of diabetes, pt is lying in bed in no acute distress. Location of Pain/Injury: reports: feet Pain Radiation: reports: no radiation Quality of Pain: reports: other (numb) Severity: reports: mild Onset/Duration: reports: 2 days ago Timing: reports: still present Context/Activities at Onset: reports: none Modifying Factors: improves with: nothing Associated Symptoms: reports: denies symptoms Similar Symptoms Previously?: No Recently seen or treated by another doctor?: No Review of Systems - Adult - REVIEW OF SYSTEMS - ADULT Constitutional: reports: no symptoms reported Eyes: reports: no symptoms reported Ears, Nose, Mouth & Throat: reports: no symptoms reported Cardiovascular: reports: no symptoms reported Respiratory: reports: no symptoms reported Gastrointestinal: reports: no symptoms reported Genitourinary: reports: no symptoms reported Musculoskeletal: reports: see HPI Integumentary: reports: no symptoms reported Neurological: reports: no symptoms reported Psychiatric: reports: no symptoms reported Endocrine: reports: no symptoms reported Hematologic/Lymphatic: reports: no symptoms reported Allergic/Immunologic: reports: no symptoms reported All Other Systems: Reviewed and Negative Past History - Adult - PAST MEDICAL HISTORY-ADULT Review of Records: reports: Old Records Reviewed, Nursing Assessment Review, Medications Reviewed, Social history reviewed & non-contributory. Major Childhood Illnesses: reports: denies history Cardiovascular: reports: denies history Respiratory: reports: asthma Gastrointestinal: reports: denies history Obstetrical/Gynecological: reports: ovarian cysts, other (stage II breast cancer ) Genitourinary: reports: denies history Musculoskeletal: reports: denies history Neurological: reports: denies history Psychiatric: reports: depression Endocrine/Immune: reports: cancer (Stage 2 left breast cancer) Other Conditions: reports: denies history - PRIOR SURGERIES/PROCEDURES Surgical/Procedure History: reports: BTL, indwelling device (port), hernia repair, breast (breast biopsy) - IMMUNIZATION STATUS Childhood Immunizations: See Nurse Assessment Flu Vaccine: See Nurse Assessment - FAMILY HISTORY Family History: reviewed, not pertinent Physical Exam-General - PHYSICAL EXAM-ADULT Initial Vital Signs Reviewed: No - CONSTITUTIONAL General Appearance: appears well - EYES Eyes: PERRL/EOMI - HEAD, EARS, NOSE, MOUTH & THROAT HENMT: normocephalic/atraumatic - NECK Neck: non-tender - RESPIRATORY Respiratory: chest non-tender - CARDIOVASCULAR Cardiovascular: normal peripheral pulses - GASTROINTESTINAL (ABDOMEN) Abdominal Exam: normal bowel sounds - LYMPHATIC Lymphatic: no adenopathy - MUSCULOSKELETAL Back Exam: normal inspection Extremity: normal range of motion, other (warm feet, good pulses distally) - SKIN Integumentary: normal color - NEUROLOGIC Neurologic: dice person II-XII nml as tested - PSYCHIATRIC Psych/Mental Status: normal mood/affect Progress - PLAN OF CARE/RESULTS Progress/Plan/Lab Results: Vital Signs - 8 hr 04/01/18 06:13 Temperature 97.8 F Pulse Rate 77 Respiratory Rate 12 Blood Pressure 114/78 O2 Sat by Pulse Oximetry 100 Orders Category Date Time Status CT LUMBAR SPINE W/O CONTRAST [CT] Stat Exams 04/01/18 06:33 Ordered CBC WITH ELECTRONIC DIFF [HEME] Stat Lab 04/01/18 06:33 Uncollected COMPREHENSIVE METABOLIC PANEL [CHEM] Stat Lab 04/01/18 06:33 Uncollected Morphine Med 04/01/18 06:34 Once 4 mg IV NOW ONE Laboratory Results 04/01/18 04/01/18 06:52 06:52 WBC 3.92 L RBC 3.55 L Hgb 10.3 L Hct 31.5 L MCV 88.7 MCH 29.0 MCHC 32.7 L RDW Std Deviation 13.8 Plt Count 297 MPV 9.4 Immature Gran % (Auto) 0.0 Neut % (Auto) 6.4 L Lymph % (Auto) 83.2 H Davidson % (Auto) 7.9 Eos % (Auto) 2.0 Baso % (Auto) 0.5 Immature Gran # (Auto) 0.00 Neut # (Auto) 0.25 L* Lymph # (Auto) 3.26 Davidson # (Auto) 0.31 Eos # (Auto) 0.08 Baso # (Auto) 0.02 Segmented Neutrophils 12 L Lymphocytes 82 H Monocytes 4 Eosinophils 2 Sodium 140 Potassium 3.3 L Chloride 104 Carbon Dioxide 26 Anion Gap 10 BUN 8 Creatinine 0.5 Estimated GFR/1.73 m2 > 60 BUN/Creatinine Ratio 16 Glucose 94 Calculated Osmolality 277 Calcium 8.8 Total Bilirubin 0.27 AST 32 H ALT 19 Alkaline Phosphatase 89 Total Protein 7.0 Albumin 4.0 Globulin 3.0 Albumin/Globulin Ratio 1.3 Orders Category Date Time Status ED: Urine Bedside ORDERED Care 04/01/18 06:38 Active Physician/Provider Consults Stat Cons 04/01/18 08:24 Ordered CHEST-2 VIEWS [RAD] Stat Exams 04/01/18 07:[address] LUMBAR SPINE W/O CONTRAST [CT] Stat Exams 04/01/18 06:33 Ordered BLOOD CULTURE [BLDCUL] Stat Lab 04/01/18 07:44 Uncollected C REACTIVE PROT QUANT [CHEM] Stat Lab 04/01/18 07:44 Uncollected CBC WITH ELECTRONIC DIFF [HEME] Stat Lab 04/01/18 06:52 Completed COMPREHENSIVE METABOLIC PANEL [CHEM] Stat Lab 04/01/18 06:52 Completed DIRECT STREP Stat Lab 04/01/18 07:51 Ordered INFLUENZA SCREEN A/B Stat Lab 04/01/18 07:51 Uncollected LACTATE, PLASMA [CHEM] Stat Lab 04/01/18 07:44 Uncollected TEST-SERUM [PREG] Stat Lab 04/01/18 06:32 Received URINALYSIS W/POSS RFLX CULT [URINALYSIS] Stat Lab 04/01/18 07:43 Uncollected 0.9% Sodium Chloride Inj [Ns] 1,000 ml Med 04/01/18 07:51 Active IV 999 mls/hr Ketorolac [Toradol] Med 04/01/18 07:51 Discontinued 30 mg IV NOW ONE Morphine Med 04/01/18 06:34 Discontinued 4 mg IV NOW ONE Potassium Chloride E.r. [Klor-Con] Med 04/01/18 07:46 Discontinued 40 meq PO NOW ONE Vital Signs - 24 hr 04/01/18 06:13 Temperature 97.8 F Pulse Rate 77 Respiratory Rate 12 Blood Pressure 114/78 O2 Sat by Pulse Oximetry 100 Result Diagrams: 04/01/18 06:52 04/01/18 06:52 - REASSESSMENT Reassessment #1 Time Reassessed: 08:19 Status: unchanged (Seen and examined by me. Case discussed wiht Dr. Prado at shift change. Patient c/o myalgias and bilateral feet paresthesias, although her WBC are 3.9, her ANC is 0.25.) Reassessment Comment: x-ray, urine, flu and strep pending. - CONSULTS/PCP/HOSPITALIST Notification #1 *Consult/PCP/Hospitalist*: Agnela Time Discussed: 08:15 (No antibiotics or growth factors. He wants to admit to hospialist and plans on bone marrow biopsy and culture before any antibiotics to be given) Consult Disposition: Admit #2 Consult: Hospitalist paged at 0815 Time Discussed: 08:23 (Thierno says to admit to [facility]) - CHANGE OF SHIFT REPORT (ED Provider) 1 Report Given and Care Transferred to:: Dr. 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 Breast cancer Qualifiers: Breast location: unspecified site of breast Estrogen receptor status: positive Patient sex: female Laterality: unspecified laterality Qualified Code(s): C50.919 - Malignant neoplasm of unspecified site of unspecified female breast; Z17.0 - Estrogen receptor positive status [ER+] Disposition: ADMITTED INPATIENT 09 Certified Medical Emergency: Emergent Condition: Fair Referrals and Follow-Ups: None,PCP [Primary Care Provider] - - Critical Care Note This patient required my direct & personal management of CC.: No Attestation - Physician/ FANNY Attestation Patient care was provided by Advanced Practice Provider:: No The physician spent face to face time with patient:: Yes Advanced Practice Provider documentation review:: Supervising physician onsite and consulted in the evaluation and care of this patient. The physician did have a face to face encounter with the patient.
[2018-04-01 07:32] LABS: BASO# 0.02 X1000 (0.0-0.2); BASO% 0.5 % (0.0-0.8); EOS# 0.08 X1000 (0.0-0.7); HEMATOCRIT 31.5 % (37.0-47.0); HEMOGLOBIN 10.3 g/dL (12.0-16.0); LYMPH# 3.26 X1000 (1.2-3.4); LYMPH% 83.2 % (20.5-51.1); MCHC 32.7 g/dL (33-37); MCV 88.7 FL (81-99); MONO# 0.31 X1000 (0.11-0.59); MONO% 7.9 % (1.7-9.3); MPV 9.4 FL (7.4-10.4); NEUT# 0.25 X1000 (1.4-6.5); NEUT% 6.4 % (42.2-75.2); PLT 297 X1000 (130-400); RBC 3.55 XMIL (4.2-5.4); RDW 13.8 % (11.5-14.5); WBC 3.92 X1000 (4.8-10.8)
[2018-04-01 07:40] LABS: AGAP 10; ALB/GLOB RATIO 1.3; ALKALINE PHOSPHATASE 89 U/L (32-104); BUN 8 mg/dL (8-22); CALCIUM 8.8 mg/dL (8.8-10.2); CHLORIDE 104 mmol/L (98-107); COSMO 277; CREATININE 0.5 mg/dL (0.5-0.9); ESTIMATED GFR > 60; GLUCOSE 94 mg/dL (70-104); GOT 32 U/L (10-30); GPT 19 U/L (10-36); POTASSIUM 3.3 mmol/L (3.5-5.1); SODIUM 140 mmol/L (136-145); TCO2 26 mmol/L (25-35); TOTAL BILIRUBIN 0.27 mg/dL (0.20-1.00)
[2018-04-01] MEDS ORDERED: KLOR-CON PO ONE (07:46)
[2018-04-01] MEDS ORDERED: TORADOL IV ONE (07:51)
[2018-04-01] MEDS ORDERED: NS 1,000 ML IV ONE ×2 (07:51→09:01)
[2018-04-01 08:00] LABS: EOS 2 % (1-10); LYMPHS 82 % (21-51); MONO 4 % (1-9); SEGS 12 % (42-75)
[2018-04-01 08:32] LABS: URINE SOURCE CLEAN CATCH
[2018-04-01 08:40] LABS: BILIRUBIN URINE NEGATIVE (NEGATIVE); BLOOD URINE NEGATIVE (NEGATIVE); COLOR YELLOW; GLUCOSE URINE NEGATIVE (NEGATIVE); KETONE URINE NEGATIVE (NEGATIVE); LEUKOCYTES URINE NEGATIVE (NEGATIVE); NITRITE URINE NEGATIVE (NEGATIVE); PH URINE 6.5; PROTEIN URINE TRACE mg/dL (NEGATIVE); SP GRAVITY URINE 1.026; TURBIDITY URINE CLEAR (CLEAR); UR EPITHELIAL CELLS <10 /HPF (<10); URINE BACTERIA NEGATIVE /HPF; URINE RBC <10 /HPF (<10); URINE WBC <10 /HPF (<10); UROBILINOGEN URINE 3 mg/dL (NORMAL)
[2018-04-01] MEDS ORDERED: MORPHINE IV PRN (09:01)
[2018-04-01] MEDS ORDERED: SODIUM CHLORIDE 0.9% INJ SCH (09:01)
[2018-04-01] MEDS ORDERED: PHENERGAN IV PRN (09:01)
--- NOTE | 2018-04-01 09:17 | Diag Imaging Result Doc PS360 ---
CT LUMBAR SPINE W/O CONTRAST - 04/01/2018 INDICATION: lower extremity parathesias, history of breast can COMPARISON: None FINDINGS: Alignment is anatomic. Vertebral body heights and intervertebral disc spaces are preserved. No pars defect. Sacroiliac joints are clear. Soft tissues are clear. IMPRESSION: Negative exam. This exam was performed using automated exposure control, adjustment of mA or kV according to patient size, and/or use of iterative reconstruction technique Electronically signed by Ubaldo Davis 04/01/2018 9:14 AM
[2018-04-01] MEDS: PEPCID IV SCH ×2 (09:31→21:36)
--- NOTE | 2018-04-01 09:45 | Diag Imaging Result Doc PS360 ---
EXAM: CHEST-2 VIEWS HISTORY: short of breath TECHNIQUE: Chest two views COMPARISON: 03/27/2018 FINDINGS: The lungs are well expanded. The heart is not enlarged. No change in the right jugular portacatheter. The vessels are not distended. There are no infiltrates. No pleural effusions. Mild scoliosis. IMPRESSION: No acute abnormality. Electronically signed by Alexander Jasso 04/01/2018 9:42 AM
--- NOTE | 2018-04-01 10:33 | HISTORY AND PHYSICAL ---
ONCOLOGIST: Dr. Rosen CHIEF COMPLAINT: Weakness and lower extremity paresthesia. HISTORY OF PRESENT ILLNESS: Mrs. Artis is a 27-year-old female with a history of breast cancer, followed by Dr. Rosen, who was discharged from our service 3 days ago for weakness, fatigue, malaise. She was also noted to be neutropenic at that time. Since discharge, she has been complaining of lower extremity numbness and tingling but no loss of coordination or strength. She continues to have generalized malaise, body aches, but denies any overt fever. No chills. She is complaining of some throat pain but denies any cough with sputum production. She denies any abdominal pain, nausea or vomiting or diarrhea. In the ER today, she was again noted to be neutropenic and anemic with her chemistry being essentially unremarkable with the exception of some mild hypokalemia. Dr. Rosen has requested admission and a bone marrow biopsy will be ordered. He has asked that no antibiotics or growth factors be given until this procedure has been completed. Currently she is hemodynamically stable and afebrile. She will be admitted for further treatment and evaluation. PAST MEDICAL HISTORY: History of left sided breast cancer followed by Dr. Rosen. Last chemotherapy was 02/13/2018. PAST SURGICAL HISTORY: 1. Breast biopsy. 2. Hernia repair. 3. Tubal ligation. 4. Power port placement. SOCIAL HISTORY: No tobacco, alcohol, or drug use. FAMILY HISTORY: Noncontributory. REVIEW OF SYSTEMS: A 14-point review of systems obtained and found to be negative with the exception of the HPI. ALLERGIES: Omeprazole, penicillin, sulfa. HOME MEDICATIONS: 1. [place] 5, 1-2 p.o. q.3-4 hours as needed for pain. 2. Lansoprazole 30 mg p.o. daily. 3. Zofran ODT 40 mg p.o. q.6 hours. 4. Phenergan 25 mg p.o. q.6 hours. 5. Imitrex 50 mg as directed. PHYSICAL EXAMINATION: VITAL SIGNS: Blood pressure 114/78, heart rate 77, respiratory rate 12, O2 saturation 100% on room air, temperature 97.8. GENERAL: Cachectic appearing 27-year-old female lying in the hospital bed in no acute distress. NEUROLOGIC: She is awake but somewhat lethargic. She follows commands without any focal deficits. Specifically, no muscle loss, no muscle strength loss. In the lower extremities, she has full range of motion and good muscle tone bilaterally. HEENT: Head is atraumatic, normocephalic. Pupils equal, round and reactive to light. Oral mucosa is dry. Trachea is midline. Posterior oropharynx is somewhat erythematous but there are no pustules noted. CHEST: Clear to auscultation bilaterally. CARDIOVASCULAR: Regular rate and rhythm. No murmurs. S1 and S2 noted. ABDOMEN: Soft, nondistended, nontender. Bowel sounds positive. EXTREMITIES: No edema. Pulses 2+ bilaterally. DIAGNOSTIC DATA: Imaging is pending. LABORATORY DATA: WBC 3.92, hemoglobin 10.3, hematocrit 31.5, platelet count 297. Segmented neutrophils 12, lymphocytes 82, monocytes 4, eosinophils 2. Sodium 140, potassium 3.3, chloride 104, CO2 26, anion gap 10, BUN 8, creatinine 0.5, glucose 9, calcium 8.8. Total bilirubin 0.27, AST 32, ALT 19, alkaline phosphatase 89, total protein 7. Lactic acid 1. test is negative. Urinalysis is negative. ASSESSMENT AND PLAN: 1. Neutropenia without fever: The patient will be admitted in anticipation for bone marrow biopsy. Multiple cultures have been ordered including blood and urine. There is also strep test, flu test, and CRP that have been ordered and are pending as is a chest x-ray. 2. Lower extremity paresthesia. Neuro exam is normal. Lumbar CT has been ordered by the ER that is pending. She had a brain MRI last month which did not show anything acute. 3. Normocytic anemia. No iron studies on record. Will order a comprehensive iron study including haptoglobin, retic count and transferrin. 4. Hypokalemia. Magnesium has been ordered and potassium replacement has been ordered. Will continue to follow and replace as necessary. 5. Deep venous thrombosis prophylaxis with sequential compression devices. Further recommendations to follow. Dictated by MELISSA Winkler for Bola Lowe MD Patient seen and examined by me face to face, all the laboratory, vitals signs and images were reviewed, presented to the emergency department with lower extremities paresthesias, tingling sensation, patient has breast cancer and the plan in the future is to do a mastectomy, she is neutropenic, Hematology / oncology asked for BM biopsy , we will replace electrolytes, I agree with the SENIOR ACCOUNTING SPECIALIST's assessment and plan, Bola Rodriguez MD. cc: MELISSA Winkler MD [facility]
[2018-04-01 11:02] LABS: RETIC% 0.28 % (0.8-2.1); RETIC-HE 33.5 PG (28.2-36.6)
[2018-04-01 11:19] LABS: IRON SATURATION 33 %; TIBC 269 ug/dL; TOTAL IRON 88 ug/dL (49-151); UNBOUND IRON 181 ug/dL (112-346)
--- NOTE | 2018-04-01 14:19 | HEMO/ONC CONSULTATION ---
DATE: 04/01/2018 ADMITTING PHYSICIAN: Dr. Lowe. REQUESTING PHYSICIAN: Dr. Lowe. We appreciate this consult. CHIEF COMPLAINT: Breast cancer. HISTORY OF PRESENT ILLNESS: Ms. Peck is a 27-year-old female, well known to Dr. Rosen with a history of hormone positive HER-2 negative breast cancer status post Adriamycin and Cytoxan. The patient is currently awaiting mastectomy which has been on hold secondary to persistent neutropenia. The patient was actually discharged from the hospital 3 days ago with admission for weakness, fatigue, and malaise, and neutropenia. Since the discharge the patient has reported lower extremity numbness and tingling with generalized malaise, body aches, and no overt fever. The patient is complaining of throat pain. She presented to [facility] Emergency Department where the patient will be admitted secondary to profound ongoing neutropenia. We are consulted as the patient is well known to us. PAST MEDICAL HISTORY: Left-sided breast cancer, hormone positive HER-2 negative. PAST SURGICAL HISTORY: 1. Breast biopsy. 2. Hernia repair. 3. Tubal ligation. 4. Power port placement. SOCIAL HISTORY: The patient does not use tobacco, alcohol, or illicit drugs. FAMILY HISTORY: Negative for any hematologic or oncologic disease. MEDICATIONS ON ADMISSION: 1. [place]. 2. Lansoprazole. 3. Zofran. 4. Phenergan. 5. Imitrex. ALLERGIES: Omeprazole, penicillin, and sulfa. REVIEW OF SYSTEMS: A 14 point review of systems was obtained and is negative except for as mentioned in HPI. PHYSICAL EXAMINATION: General: Ms. Peck is a 27-year-old female, lying supine in bed, in no immediate distress. Vital Signs: Temperature 97.8 degrees, blood pressure 114/78, heart rate 77, respirations 12, O2 saturation 100% on room air. HEENT: Normocephalic, atraumatic. Mucous membranes slightly pale and moist. Sclerae anicteric. Extraocular movements intact. Neck: Supple. Lungs: Clear to auscultation bilaterally. Chest expansion equal bilaterally. CV: S1, S2 is heard. No murmurs, rubs, or gallops. Abdomen: Nondistended. Extremities: No clubbing, cyanosis, or edema. Dermatologic: No rashes, bruises, or lesions. Neurologic: The patient is awake, alert, and oriented x3. She has no focal deficits. LABORATORY DATA: Hemoglobin 10.3, hematocrit 31.5, white blood cell count 3.92, platelets 297,000. ANC 0.25. Sodium 140, potassium 3.3, chloride 104, CO2 is 26, BUN 8, creatinine 0.5, glucose is 94, calcium 8.8. Iron saturation 33%. Magnesium 1.9. Urinalysis is negative for UTI. IMAGING STUDIES: CT of the L-spine is negative for any abnormality. Chest x-ray reveals no acute abnormality. ASSESSMENT AND PLAN: 1. Hormone positive HER-2 negative breast cancer status post Adriamycin and Cytoxan. Currently awaiting mastectomy which has been on hold due to persistent neutropenia. 2. Neutropenia, ongoing. The patient will be placed on reverse isolation. We will obtain bone marrow biopsy tomorrow. The patient will receive growth factor support after that time. We will not provide antibiotics unless the patient becomes febrile. We will continue to monitor CBC. 3. Anemia, stable with a hemoglobin of 10.3. Would continue to monitor hemoglobin. Iron saturation is within normal limits. 4. We will follow along with you and make further recommendations pending outcomes. The above reflects the history, exam, assessment, and plan of Dr. Rosen. Dictated by MELISSA Palomares for Luis Rosen MD cc: MELISSA Palomares MD
[2018-04-01] MEDS: NORCO-5 PO PRN (17:53)
[2018-04-01] MEDS: XANAX PO SCH (21:36)
[2018-04-01] MEDS: ZOFRAN IV PRN (21:36)
[2018-04-01] MEDS: MORPHINE IV PRN (21:36)
[2018-04-01] MEDS: NEURONTIN PO SCH (23:47)
[2018-04-02] MEDS: MORPHINE IV PRN ×2 (06:55→11:54)
[2018-04-02] MEDS: PRILOSEC PO SCH (07:06)
[2018-04-02 07:57] LABS: BASO# 0.02 X1000 (0.0-0.2); BASO% 0.6 % (0.0-0.8); EOS# 0.12 X1000 (0.0-0.7); EOS% 3.6 % (0.0-10.0); HEMATOCRIT 29.3 % (37.0-47.0); HEMOGLOBIN 9.2 g/dL (12.0-16.0); LYMPH# 2.66 X1000 (1.2-3.4); LYMPH% 80.4 % (20.5-51.1); MCH 28.7 PG (27-31); MCHC 31.4 g/dL (33-37); MCV 91.3 FL (81-99); MONO# 0.21 X1000 (0.11-0.59); MONO% 6.3 % (1.7-9.3); MPV 9.6 FL (7.4-10.4); NEUT% 9.1 % (42.2-75.2); PLT 275 X1000 (130-400); RBC 3.21 XMIL (4.2-5.4); WBC 3.31 X1000 (4.8-10.8)
[2018-04-02 08:11] LABS: AGAP 9; BUN 4 mg/dL (8-22); CALCIUM 8.4 mg/dL (8.8-10.2); CHLORIDE 107 mmol/L (98-107); COSMO 275; CREATININE 0.5 mg/dL (0.5-0.9); ESTIMATED GFR > 60; GLUCOSE 82 mg/dL (70-104); POTASSIUM 3.8 mmol/L (3.5-5.1); SODIUM 140 mmol/L (136-145); TCO2 24 mmol/L (25-35)
[2018-04-02 08:16] LABS: EOS 4 % (1-10); LYMPHS 76 % (21-51); SEGS 16 % (42-75)
[2018-04-02] MEDS ORDERED: NS 1,000 ML IV SCH (08:30)
[2018-04-02] MEDS ORDERED: MARCAINE 0.5% ONE (09:18)
[2018-04-02] MEDS ORDERED: SENSORCAINE-MPF 0.5%/EPI 1:200,000 ONE (09:22)
[2018-04-02] MEDS ORDERED: ROBINUL ONE (09:33)
[2018-04-02] MEDS ORDERED: XYLOCAINE-MPF 2% ONE (09:33)
[2018-04-02] MEDS ORDERED: DIPRIVAN 1% ONE ×2 (09:34)
[2018-04-02] MEDS ORDERED: VERSED ONE (09:35)
[2018-04-02 11:09] LABS: FLOW CYTOMETERY SOURCE BONE MARROW; LEUKEMIA LYMPHOMA BY FLOW REFERRED FOR TESTING
[2018-04-02] MEDS: NEURONTIN PO SCH ×2 (11:52→20:59)
[2018-04-02] MEDS: PAXIL PO SCH (11:53)
[2018-04-02] MEDS: XANAX PO SCH ×2 (12:10→20:59)
[2018-04-02] MEDS: PEPCID IV SCH ×2 (12:17→20:58)
[2018-04-02] MEDS: GRANIX SUBQ SCH (14:25)
[2018-04-02] MEDS: ZOFRAN IV PRN (16:06)
--- NOTE | 2018-04-02 16:12 | PROGRESS NOTE ---
DATE: 04/02/2018 SUBJECTIVE: This patient had a bone marrow biopsy done today. She tolerated well the procedure. She is weak complaining of generalized pain. She has been placed on a diet and she seems to be tolerating a little bit of it. Vital signs are stable. She is neutropenic. No fever. OBJECTIVE: Vital Signs: Temperature 97.8 degrees, pulse 66, respiratory rate 18, blood pressure 105/68, oxygen saturation 100% on room air. HEENT: Head normocephalic. No trauma. PERRLA. Neck: Supple. No JVD. No masses. Central trachea. Chest: Clear to auscultation. No wheezing. No rales. Abdomen: Soft, nontender, nondistended. No hepatosplenomegaly. Extremities: No edema, no clubbing, no cyanosis. Neurological: The patient is alert. She is sleepy, but arousable. Oriented x3. She moves all 4 extremities, but she has generalized weakness. LABORATORY: WBC 3.3, hemoglobin 9.2, hematocrit 29.3, platelets 275, neutrophils 0.3. Sodium 140, potassium 3.8, chloride 107, bicarbonate 24. BUN 4, creatinine 0.5, glucose 92, calcium 8.4, magnesium 1.7. ASSESSMENT AND PLAN: 1. Neutropenia without fever. This patient just had a bone marrow biopsy done today. She tolerated well the procedure. Blood culture has been negative. Pending more hematology/oncology recommendations. 2. Lower extremity paresthesias. Today, she is not complaining of tingling sensation at the level of the lower extremities. Her CT lumbar spine without contrast was negative. We will continue to monitor. 3. Normocytic anemia. Hematology/Oncology on board. Continue to monitor. 4. Hypokalemia, resolved. 5. Deep vein thrombosis prophylaxis with sequential compression devices. 6. Generalized weakness and physical deconditioning. Aware. I will ask for physical therapy starting tomorrow. cc: Bola Lowe MD
[2018-04-02] MEDS: NORCO-5 PO PRN (16:30)
[2018-04-03] MEDS: MORPHINE IV PRN (00:24)
[2018-04-03 03:46] VITALS: BP 94/60
[2018-04-03] MEDS: PRILOSEC PO SCH (06:49)
[2018-04-03 08:27] LABS: BASO# 0.03 X1000 (0.0-0.2); BASO% 0.1 % (0.0-0.8); EOS# 0.13 X1000 (0.0-0.7); EOS% 0.6 % (0.0-10.0); HEMATOCRIT 30.2 % (37.0-47.0); HEMOGLOBIN 9.7 g/dL (12.0-16.0); IMM GRAN# 0.07 X1000 (0.0-0.04); IMM GRAN% 0.3 % (0.0-0.5); LYMPH# 2.66 X1000 (1.2-3.4); LYMPH% 11.3 % (20.5-51.1); MCH 29.1 PG (27-31); MCHC 32.1 g/dL (33-37); MCV 90.7 FL (81-99); MONO# 0.66 X1000 (0.11-0.59); MONO% 2.8 % (1.7-9.3); MPV 9.5 FL (7.4-10.4); NEUT# 19.94 X1000 (1.4-6.5); NEUT% 84.9 % (42.2-75.2); PLT 279 X1000 (130-400); RBC 3.33 XMIL (4.2-5.4); RDW 14.2 % (11.5-14.5); WBC 23.49 X1000 (4.8-10.8)
[2018-04-03 08:39] LABS: AGAP 4; BUN 10 mg/dL (8-22); CALCIUM 9.1 mg/dL (8.8-10.2); CHLORIDE 105 mmol/L (98-107); COSMO 280; CREATININE 0.6 mg/dL (0.5-0.9); ESTIMATED GFR > 60; GLUCOSE 85 mg/dL (70-104); POTASSIUM 3.7 mmol/L (3.5-5.1); SODIUM 141 mmol/L (136-145); TCO2 32 mmol/L (25-35)
[2018-04-03 08:48] LABS: BANDS 4 % (0-1); LYMPHS 22 % (21-51); SEGS 74 % (42-75)
[2018-04-03] MEDS: PAXIL PO SCH (09:08)
[2018-04-03] MEDS: NEURONTIN PO SCH (09:08)
[2018-04-03] MEDS: GRANIX SUBQ SCH (09:08)
[2018-04-03] MEDS: XANAX PO SCH (09:08)
[2018-04-03] MEDS: PEPCID IV SCH (09:09)
--- NOTE | 2018-04-04 06:45 | DISCHARGE SUMMARY ---
ADMISSION DATE: 04/01/2018 DISCHARGE DATE: 04/03/2018 DISCHARGE DIAGNOSES: 1. Neutropenia without fever. 2. Left lower extremity paresthesias. 3. Hormone positive HER2 negative breast cancer. 4. Normocytic anemia. 5. Hypokalemia, resolved. 6. Generalized weakness. PROCEDURES PERFORMED: 1. CT lumbar spine without contrast dated 04/01/2018. Impression: Negative exam. 2. Chest x-ray 04/01/2018. Impression: No acute abnormality. 3. Bone marrow biopsy dated 04/02/2018 CONSULTATIONS: Hematology/Oncology Department Dr. Rosen. HOSPITAL COURSE: A 27-year-old female with a history of breast cancer followed by Dr. Rosen, who was discharged from our service a few days ago for weakness, fatigue and malaise. She was also noted to be neutropenic at that time. Since discharge, she has been complaining of lower extremity numbness and tingling but not loss of coordination or strength. She was readmitted on 04/01/2018. She continues to have generalized malaise and body aches, but denies any overt fever. No chills. She is complaining of some throat discomfort, but she denies any cough or sputum production. She denies any abdominal pain, nausea, vomiting or diarrhea. In the emergency department, she was noted again neutropenic and anemic with her chemistries being essentially unremarkable with the exception of some hypokalemia. Dr. Rosen requested at that time admission so he can perform a bone marrow biopsy. A lumbar spine CT scan has been done, and did not show any abnormality. Dr. Rosen actually evaluated this patient, and they have recommended a bone marrow biopsy which was done already on 04/02/2018 without any complication, pending results. Then, this patient was placed on Granix due to her neutropenia and low WBC. With just 1 dose, WBC increased from 3.23 to 23.4, and the neutrophil count from 0.3 to 19.9. We basically continued with her home medications during this hospitalization, and also we added morphine to her regimen to help with the pain. Today, this patient is ready to be discharged. Hematology/Oncology Department already evaluated this patient again today. They will follow this patient up as an outpatient. At this moment, this patient was in stable medical condition and hopefully she can get the mastectomy done any time soon. CONDITION AT DISCHARGE: Upon discharge, the patient was in a stable medical condition, tolerating p.o. DISCHARGE EXAMINATION: Vital Signs: Temperature 97.5 degrees, pulse 88, respiratory rate 22, blood pressure 94/60, and oxygen saturation 98% on room air. HEENT: Head normocephalic. No trauma. PERRLA. Neck: Supple. No JVD. No masses. Central trachea. Chest: Clear to auscultation. No wheezing. No rales. Abdomen: Soft, nontender, nondistended. No hepatosplenomegaly. Extremities: No edema. No clubbing. No cyanosis. Neurological: The patient is alert. She is oriented x3. She moves all 4 extremities, but she has some weakness. LABORATORY: WBC 23.4, hemoglobin 9.7, hematocrit 30.2 and platelets 279,000. Neutrophil count 19.9. Sodium 141, potassium 3.7, chloride 105, bicarbonate 32, BUN 10, and creatinine 0.6. Glucose 85, calcium 9.1, and magnesium 1.8. DISCHARGE MEDICATIONS: 1. Potassium chloride 20 mg p.o. daily. 2. Gabapentin 100 mg p.o. b.i.d. 3. Zofran ODT 4 mg p.o. q.6 hours as needed. 4. Lansoprazole 30 mg p.o. daily. 5. Imitrex 50 mg p.o. q.2 hours p.r.n. 6. Paxil 10 mg p.o. daily. 7. Alprazolam 0.5 mg p.o. b.i.d. 8. Phenergan 25 mg p.o. q.6 hours p.r.n. fever. 9. [place] 5 1 to 2 tablet p.o. q. 3 to 4 hours as needed for pain. FOLLOWUP: Dr. Rosen. They will need to call for an appointment, but I believe it has been already scheduled. TIME SPENT: Time discharging this patient 30 minutes. cc: Bola Lowe MD
== END 2018-04-03 17:31 | disposition home or self-care (01) | DRG 810 ==
LOC: ED 06:09 → EDIPHOLD 10:24 → 3N 12:11
PROVIDERS: ATTEND Internal Medicine
CPT/HCPCS: 71020; 71046; 72131; 74022; 80048; 80053; 81001; 82607; 82728; 82746; 83010; 83540; 83550; 83605; 83735; 84466; 84703; 85025; 85045; 85999; 86140; 87040; 87081; 87275; 87276; 87430; 87804; 88305; 88311; 88313; 96361; 96374; 96375; 96376; 97162; 97530; 99285; A9270; C9113; J1170; J1446; J1447; J1885; J2250; J2270; J2405; J2550; J7030; S0020; S0028; S0164

== ENCOUNTER 2018-04-04 23:48 | Inpatient (IN) ==
[2018-04-05] MEDS ORDERED: NS 1,000 ML IV ONE ×2 (00:19→03:21)
[2018-04-05 01:59] LABS: BASO# 0.03 X1000 (0.0-0.2); BASO% 0.1 % (0.0-0.8); EOS# 0.06 X1000 (0.0-0.7); EOS% 0.3 % (0.0-10.0); HEMATOCRIT 29.8 % (37.0-47.0); HEMOGLOBIN 9.9 g/dL (12.0-16.0); IMM GRAN# 0.08 X1000 (0.0-0.04); IMM GRAN% 0.3 % (0.0-0.5); LYMPH# 4.14 X1000 (1.2-3.4); LYMPH% 17.5 % (20.5-51.1); MCH 29.6 PG (27-31); MCHC 33.2 g/dL (33-37); MONO# 0.72 X1000 (0.11-0.59); MPV 9.9 FL (7.4-10.4); NEUT# 18.58 X1000 (1.4-6.5); NEUT% 78.8 % (42.2-75.2); PLT 320 X1000 (130-400); RBC 3.35 XMIL (4.2-5.4); RDW 14.5 % (11.5-14.5); WBC 23.61 X1000 (4.8-10.8)
[2018-04-05 02:08] LABS: AGAP 12; ALB/GLOB RATIO 1.3; ALBUMIN 4.1 g/dL (3.5-5.0); ALKALINE PHOSPHATASE 126 U/L (32-104); BUN 5 mg/dL (8-22); CALCIUM 8.9 mg/dL (8.8-10.2); CHLORIDE 105 mmol/L (98-107); COSMO 276; CREATININE 0.5 mg/dL (0.5-0.9); ESTIMATED GFR > 60; GLUCOSE 93 mg/dL (70-104); GOT 33 U/L (10-30); GPT 21 U/L (10-36); POTASSIUM 3.7 mmol/L (3.5-5.1); SODIUM 140 mmol/L (136-145); TCO2 23 mmol/L (25-35); TOTAL BILIRUBIN 0.18 mg/dL (0.20-1.00); TOTAL PROTEIN 7.3 g/dL (6.3-8.3)
[2018-04-05] MEDS ORDERED: MORPHINE IV ONE ×2 (03:21→05:27)
--- NOTE | 2018-04-05 06:02 | Diag Imaging Result Doc PS360 ---
EXAM : CT HEAD/C-SPINE W/O CONTRAST HISTORY: Fall on the head, syncope TECHNIQUE: 1. CT head without contrast 2. CT cervical spine without contrast COMPARISON: Head compared to 01/31/2018 FINDINGS: Head: No parenchymal hemorrhage. No epidural or subdural hematoma. No subarachnoid hemorrhage. No mass identified on this noncontrasted exam. No hydrocephalus. No skull fracture. No change in the left maxillary cyst. Cervical spine: There is good alignment to the cervical spine. No precervical soft tissue swelling. No subluxation. No fracture. IMPRESSION: Head: No hemorrhage. No injury. Cervical spine: No acute fracture. A preliminary report was given at 12:58 AM. This exam was performed using automated exposure control, adjustment of mA or kV according to patient size, and/or use of iterative reconstruction technique. Electronically signed by Alexander Jasso 04/05/2018 6:00 AM
--- NOTE | 2018-04-05 06:04 | HISTORY AND PHYSICAL ---
ADDENDUM REASON FOR ADMISSION: Syncope x2. HISTORY OF PRESENT ILLNESS: Ms. Lillian Artis was recently discharged from this facility, she says two days ago for neutropenia and fatigue. She was given, I believe, a colony-stimulating factor to increase her white count from 3000 on admission to 23,000. She says since she has been at home she has been very lethargic and weak. She vomited twice overnight and on both occasions, a few minutes after she vomited she passed out; once when she was lying down and the second time when she stood up. Also, prior to passing out she states that she had palpitations and some mild shortness of breath with each episode. No hematemesis or coffee grounds. No other GI symptoms. REVIEW OF SYSTEMS: Only notable for diffuse aches and pains and weakness. PHYSICAL EXAMINATION: Only notable for having lanugo hair, being sarcopenic, and having decreased pulse volume. The patient's syncope could be due to volume depletion, although one would need to consider the possibility of thromboembolic etiology. A D-dimer will be ordered and possibly a CTA could be ordered to rule out PE, which can do this in some patients. These tests have been ordered especially in a patient who has stage II breast cancer. PLAN: For now will be hydration, check D-dimer and order CT scan if positive. Echocardiogram. Aggressive symptomatic treatment for pain. If the patient is hypotensive, consider the possibility of adrenal function evaluation. cc: Alfredo Gong MD
[2018-04-05 07:08] LABS: INR 0.98; PROTIME 13.7 Seconds (11.0-16.0)
[2018-04-05 07:09] LABS: PTT 36.3 Seconds (22.3-41.8)
[2018-04-05 07:11] LABS: D-DIMER 0.35 ug/mLFEU (0.0-0.52)
[2018-04-05] MEDS ORDERED: D50W SYRINGE IV ONE ×2 (07:36→07:54)
[2018-04-05] MEDS ORDERED: TYLENOL PO PRN (08:37)
[2018-04-05] MEDS ORDERED: ZOFRAN IV PRN (08:38)
[2018-04-05] MEDS ORDERED: D50W SYRINGE IV PRN (08:39)
[2018-04-05] MEDS: NS 1,000 ML IV SCH ×2 (09:07→18:38)
[2018-04-05] MEDS ORDERED: NARCAN IV ONE (09:26)
[2018-04-05 10:08] LABS: URINE SOURCE CATH
[2018-04-05 10:13] LABS: BILIRUBIN URINE NEGATIVE (NEGATIVE); BLOOD URINE NEGATIVE (NEGATIVE); GLUCOSE URINE 200 mg/dL (NEGATIVE); KETONE URINE NEGATIVE (NEGATIVE); LEUKOCYTES URINE LARGE (NEGATIVE); NITRITE URINE NEGATIVE (NEGATIVE); PH URINE 6.5; PROTEIN URINE NEGATIVE (NEGATIVE); SP GRAVITY URINE < 1.001; TURBIDITY URINE TURBID (CLEAR); UROBILINOGEN URINE NORMAL (NORMAL)
[2018-04-05 10:17] LABS: UR EPITHELIAL CELLS >10 /HPF (<10); URINE BACTERIA 4+ /HPF; URINE RBC <10 /HPF (<10); URINE WBC TNTC /HPF (<10)
[2018-04-05 10:18] LABS: COLOR STRAW
[2018-04-05 10:23] LABS: URINE CASTS NONE SEEN; URINE CRYSTALS NONE SEEN; URINE SMALL ROUND CELLS NONE SEEN; URINE YEAST NONE SEEN
--- NOTE | 2018-04-05 10:30 | Diag Imaging Result Doc PS360 ---
EXAM: CHEST-1 VIEW HISTORY: Syncope, SOB TECHNIQUE: Chest single view COMPARISON: 04/01/2018 FINDINGS: The lungs are well expanded. The heart is not enlarged. The vessels are not distended. No change in the right jugular portacatheter. No pneumothorax. There are no infiltrates. No effusion identified. IMPRESSION: No acute abnormality. Electronically signed by Alexander Jasso 04/05/2018 10:27 AM
[2018-04-05 10:37] LABS: ALLEN TEST NO; BE -0.1 mmoll (-3.0-3.0); BLOOD TYPE ARTERIAL; HCO3-(ACT) 24.9 mmoll (20.0-26.0); METHB 1.5 % (0.0-1.5); O2(CT) 13.9 mL/dL (15.0-23.0); PCO2(98.6) 34 mmHg (35-45); PO2(98.6) 127 mmHg (60-100); SAMPLE BLOOD; SAO2 99.9 % (95.0-100.0); pH(98.6) 7.45 (7.35-7.45)
[2018-04-05 10:39] LABS: MODALITY CANNULA
[2018-04-05 10:50] LABS: UR AMPHETAMINES QUAL NONE DETECTED (NONE DETECT); UR BARBITUATES QUAL PRESUMPTIVE POSITIVE (NONE DETECT); UR BENZODIAZEPIN QUAL NONE DETECTED (NONE DETECT); UR CANNABINOIDS QUAL NONE DETECTED (NONE DETECT); UR COCAINE QUAL NONE DETECTED (NONE DETECT); UR METHADONE QUAL NONE DETECTED (NONE DETECT); UR OPIATES QUAL PRESUMPTIVE POSITIVE (NONE DETECT); UR OXYCODONE QUAL NONE DETECTED (NONE DETECT); UR PCP QUAL NONE DETECTED (NONE DETECT)
[2018-04-05] MEDS: LEVAQUIN 500 MG/D5W 500 MG/100 ML IVPB IV SCH (13:33)
--- NOTE | 2018-04-06 06:03 | HISTORY AND PHYSICAL ---
ONCOLOGIST: Dr. Rosen. DATE AND TIME: 04/05/2018 at 0715. CHIEF COMPLAINT: Syncope. HISTORY OF PRESENT ILLNESS: Ms. Artis is a 27-year-old female who was just recently discharged from our facility on 03/06/2018. She does have a history of hormone positive HER2 negative breast cancer. She was admitted during her most recent admission for weakness, fatigue and malaise. She did have a neutropenia without fever. She was given Granix due to her neutropenia and leukopenia. Upon discharge, her white blood cell count was 23, 000. The patient is status post treatment for her breast cancer by Dr. Rosen with Adriamycin and Cytoxan. She has currently been awaiting a mastectomy which has been on hold secondary to persistent neutropenia. The patient states that since being discharged home she has been very lethargic and weak. She reported that she vomited twice overnight on April 04. Both occasions were followed by syncopal episodes. The patient states that she would vomit a few minutes later and would pass out. One syncopal episode did occur while she was lying down and the 2nd syncopal episode occurred after she had stood up. Patient also reports that prior to passing out she did have some palpitations and mild shortness of breath with each episode. She denies any fever, body aches or chills. She denies any hematemesis or coffee ground emesis. She is denying any headache, chest pain, diarrhea, dysuria or urinary frequency. The patient is reporting some generalized aches and pains. Looking back, this does appear to be the same type pain she was describing on her most recent admission. Upon evaluation in the ER, the patient's EKG showed normal sinus rhythm with a sinus arrhythmia at a rate of 66 with a QTc of 423. Given the patient's history of breast cancer and reports of syncope with palpitations and dyspnea, we did perform a D-dimer which was negative. The patient denies any swelling, localized pain, or warmth or erythema in her extremities. A chest x-ray did not show any acute abnormality. We are awaiting a urinalysis at this time. Upon my evaluation in the ER, I did walk in the room to find the patient very lethargic. She was minimally responsive to painful stimuli. The patient had previously been given 2 separate doses of 2 mg of morphine which were a few hours apart. From what I understand, she does take pain medicine at home and was receiving 4 mg of morphine q.4 hours on her most previous admission. It was noted that the patient's fingerstick blood sugar was 73. We did decide to give the patient a half amp of D50. Immediately after this was given, the patient did become a little more responsive. She did open up her eyes and did begin to move her extremities. We did go ahead and give a 2nd half amp of D50. After administration of this, the patient was more responsive. She did begin to answer questions. She did tell us her name and that was at the doctor's office though she thought it was February instead of March. She was able to tell me what brought her to the ER. She was also able to provide information related to history of present illness and review of systems. Prior to administration of D50 and after, the patient was breathing 14-16 per minute. Oxygen saturation was 100% per nasal cannula at 2 L. Heart rate was stable in the 60s and 70s and blood pressure was stable as well at 131/92. I did stay at bedside for quite some time and monitored her. The patient though still was very drowsy was easily arousable with verbal and light tactile stimulation and would wake up and answer questions. Though she may at times need to be prompted more than once to answer a question, she would answer it and did answer it appropriately. I do feel that the patient's lethargy may possibly be a combination of previously administered morphine pain medication and some mild hypoglycemia. At this time, we did decide to hold off on administering any Narcan given that the patient has been having pain. I feel at this time that her responsiveness has improved with administration of D50. We will continue to monitor this closely though and if she does begin to become more lethargic we will likely have to administer Narcan. We will continue to follow this closely, she is going to be placed on continuous cardiac telemetry as well as pulse oximetry with frequent neuro checks and vital signs and frequent fingerstick blood sugars. REVIEW OF SYSTEMS: A 14-point review of systems was conducted with the patient and all were negative except for pertinent positives mentioned in above HPI. PAST MEDICAL HISTORY: 1. Left-sided breast cancer which is hormone positive HER2 negative status post treatment with Adriamycin and Cytoxan. The patient is currently awaiting mastectomy which has been on hold secondary to persistent neutropenia. She is followed by Dr. Rosen. 2. Depression. PAST SURGICAL HISTORY: 1. Breast biopsy. 2. Hernia repair. 3. Tubal ligation. 4. PowerPort placement. SOCIAL HISTORY: Patient denies any tobacco, alcohol or illicit drug use. FAMILY HISTORY: Negative for any hematologic or oncologic diseases. ALLERGIES: Patient has allergy to omeprazole, penicillin and sulfa. HOME MEDICATIONS: 1. Xanax 0.5 mg p.o. b.i.d. 2. Neurontin 900 mg p.o. b.i.d. 3. Van Buren 5 mg 1-2 tablets p.o. q.3-4 hours p.r.n. for pain. 4. Prevacid 30 mg p.o. daily. 5. Zofran ODT 4 mg sublingual q.6 hours p.r.n. for nausea. 6. Paxil 10 mg p.o. daily. 7. Potassium chloride extended release 20 mEq p.o. daily. 8. Phenergan 25 mg p.o. q.6 hours p.r.n. for nausea. 9. Imitrex 50 mg p.o. q.2 hours for migraines. DIAGNOSTIC DATA: Laboratory results: White blood cell count is 23,610. Hemoglobin 9.9. Hematocrit 29.8. Platelet count is 320. PT 13.7. INR 0.98. PTT is 36.3. D- dimer 0.35. Sodium 140. Potassium 3.7. Chloride 105. Serum bicarbonate is 23. BUN 5. Creatinine 0.5. Glucose 93. Calcium 8.9. Total bilirubin of 0.18. AST 33. ALT 21. Alkaline phosphatase is 126. CK 103. Troponin less than 0.01. Plasma lactate is 1.1. Chest x-ray showed no acute abnormality. CT head and C-spine without contrast showed no hemorrhage, no injury. There were no acute cervical spine fractures. This is per Radiology. EKG showed normal sinus rhythm with a sinus arrhythmia at a rate of 66 with a QTc of 423. PHYSICAL EXAMINATION: VITAL SIGNS: Temperature 97.4, heart rate 73, respirations 16, blood pressure 131/92, oxygen saturation is 100% nasal cannula at 2 L. GENERAL: Mrs. Artis is a 27-year-old female. She was initially lethargic and minimally responsive to painful stimuli upon my initial evaluation and I believe this is likely a combination of being given some morphine pain medicine previously as well as being mildly hypoglycemic. The patient's alertness and mentation did improve with administration of D50. She did wake up and begin to answer questions. She was alert and oriented to person and place though not time. She thought it was February instead of March. She was able to answer questions related to her history of present illness and past medical history. HEENT: Head is atraumatic, normocephalic. Pupils are equal, round, reactive to light, were 3 mm bilaterally and brisk. Oral mucosa is moist. Oropharynx is clear. NECK: Supple. Trachea midline. CARDIOVASCULAR: Patient has S1, S2. No murmurs, gallops, rubs appreciated with a regular rate and rhythm. PULMONARY: Patient has symmetrical chest expansion bilaterally. Lung sounds are clear to auscultation in bilateral full franklin. ABDOMEN: Soft, nontender, nondistended. Bowel sounds are present in all 4 quadrants, were normoactive. EXTREMITIES: No cyanosis, clubbing or edema noted. Pulse, motor, and sensory are intact in all extremities. Radial pulses and pedal pulses are 2 plus bilaterally. INTEGUMENTARY: The patient's skin color is normal for her race. It is dry and intact. NEUROLOGICAL: As previously mentioned, the patient was lethargic upon my initial arrival to her room. She was only minimal responsive to painful stimuli. We did administer D50. The patient did become more responsive though was still drowsy but arousable with verbal and tactile stimulation. She was awake and alert to person and place. She thought it was February instead of March though other than this was able to answer questions related to history of present illness, past medical history and what occurred prior to her arrival to the ER. She is able to move all extremities. ASSESSMENT AND PLAN: 1. Syncope. This could be multifactorial. The patient has reported that she had nausea, vomiting. She may be volume depleted. She could be experiencing some orthostatic hypotension as well. The patient also does take a few home medications that could be contributing to this as well which include Xanax, Neurontin, Van Buren and Phenergan. CT of the head and C-spine were negative for any acute injury or abnormalities. A chest x-ray did not show any acute abnormality as well. Her D-dimer was negative. Given this, we did not perform a CTA of the chest. She did report some mild symptoms of palpitations and a little bit of shortness of breath with her syncopal episodes though is not reporting this at this time. We will continue to follow this closely. We will do frequent neuro checks and vital signs. We will also perform an echocardiogram as well. EKG did not show any significant findings. It was normal sinus rhythm with a sinus arrhythmia at a rate of 66. We will hydrate the patient and await results of her echocardiogram. Cardiac enzymes were negative. We will continue to follow this closely. 2. Nausea, vomiting. We have placed p.r.n. orders for Zofran. Patient has not had any active nausea and vomiting since she has been at the hospital. She only reported 2 episodes prior to arrival. 3. Fluid volume depletion, may be secondary to her nausea, vomiting though the patient has reported that she has been having lethargy and weakness at home. She may have had poor oral fluid intake as well. We will provide fluid hydration with normal saline at 100 mL per hour. The patient did receive 2 L normal saline bolus in the ER. 4. History of left breast cancer which is hormone positive HER2 negative. We have placed a consult with Dr. Rosen and we will await his evaluation and further recommendations for management. 5. Leukocytosis. The patient does not have a known source of infection at this time. She was just recently discharged from the hospital on the 03 of April and she did receive Granix prior to her discharge. She was noted to have an increase in her white blood cell count from 3.23 to 23.4 upon discharge. She also did have an increase in her neutrophil count as well. This may be secondary to this. She is denying any fever, body aches or chills. We have ordered a urinalysis and are awaiting those results at this time and we will continue to follow. 6. Lethargy. This also could be multifactorial. The patient has reported that she has been lethargic and weak at home. She does take home medications that could be complicating this which include Xanax, Van Buren, Neurontin and Phenergan. Also, the patient was given IV morphine in the ER and did have some hypoglycemia this morning. I likely feel that her episode of lethargy which I have described it previously in her HPI may be a combination of IV pain medicine and some hypoglycemia. After being given D50, the patient's alertness and mentation did improve. She was alert and oriented times 2 and was answering questions related to HPI and past medical history appropriately. She was able to follow commands. We did at this time decide to hold off giving her Narcan though we will monitor this closely and if she does begin to become more lethargic we will go ahead and place orders for Narcan. She will be on continuous cardiac telemetry and pulse oximetry. She will have frequent neuro checks, vital signs and fingerstick blood sugars. 7. Generalized body aches and pains. At this time, we have held the patient's pain medications as well as any other sedative medications due to her lethargy. Once the patient 's lethargy, mentation and alertness improves we can likely reimplement some of these medications though dosages may need to be adjusted and times reimplemented may need to be staggered. We will continue to follow. 8. Deep venous thrombosis prophylaxis will be provided with sequential compression devices. The patient will be on the medical floor with telemetry. Vital signs, neuro checks and fingerstick blood sugars will be done q.4 hours. She is on continuous cardiac telemetry and continuous pulse oximetry. We have implemented aspiration precautions and incentive spirometry. She will be on a clear liquid diet. This can be started once she has become more awake and alert though we would like a swallowing screen to be performed prior to initiating this. Further orders and recommendations pending hospital course, diagnostic studies and physician evaluation. Dictated by MELISSA Mcmillan for Alfredo Gong MD cc: Alfredo Gong MD [facility]
[2018-04-06 07:33] LABS: BASO# 0.02 X1000 (0.0-0.2); BASO% 0.4 % (0.0-0.8); EOS# 0.13 X1000 (0.0-0.7); EOS% 2.6 % (0.0-10.0); HEMATOCRIT 30.5 % (37.0-47.0); HEMOGLOBIN 9.8 g/dL (12.0-16.0); LYMPH# 2.25 X1000 (1.2-3.4); LYMPH% 44.8 % (20.5-51.1); MCH 29.1 PG (27-31); MCHC 32.1 g/dL (33-37); MCV 90.5 FL (81-99); MONO# 0.36 X1000 (0.11-0.59); MONO% 7.2 % (1.7-9.3); MPV 9.6 FL (7.4-10.4); NEUT# 2.26 X1000 (1.4-6.5); PLT 300 X1000 (130-400); RBC 3.37 XMIL (4.2-5.4); RDW 14.5 % (11.5-14.5); WBC 5.02 X1000 (4.8-10.8)
[2018-04-06 07:56] LABS: AGAP 9; BUN 4 mg/dL (8-22); CALCIUM 8.4 mg/dL (8.8-10.2); CHLORIDE 106 mmol/L (98-107); COSMO 275; CREATININE 0.5 mg/dL (0.5-0.9); ESTIMATED GFR > 60; GLUCOSE 79 mg/dL (70-104); MAGNESIUM 1.9 mg/dL (1.5-2.7); POTASSIUM 3.6 mmol/L (3.5-5.1); SODIUM 140 mmol/L (136-145); TCO2 25 mmol/L (25-35)
[2018-04-06] MEDS: EFFEXOR XR PO SCH (10:14)
[2018-04-06] MEDS ORDERED: ZOFRAN ODT SL PRN (10:23)
[2018-04-06] MEDS ORDERED: PROTONIX IV SCH (10:30)
--- NOTE | 2018-04-06 11:53 | Diag Imaging Result Doc PS360 ---
EXAM: CT ABDOMEN/PELVIS W/O CONTRAST - 04/06/2018 HISTORY: abdominal pain TECHNIQUE: CT abdomen/pelvis without contrast. No contrast administered per request of the referring provider. COMPARISON: 11/20/2017 CT abdomen/pelvis with contrast FINDINGS: There is some limitation of detail due to the lack of administered contrast. The visualized lung bases appear clear. There are no substantial abnormalities of the liver, spleen, adrenal glands, or pancreas identified. There are no calcified gallstones or pericholecystic inflammation identified. There is no renal stone or hydronephrosis identified. There is no evidence of bowel obstruction. What appears to represent the appendix shows no obvious inflammation. There is a moderate amount retained fecal debris in the colon. There is no substantial bowel wall thickening identified. There is no abscess identified. There is no free air. There is a small amount of free fluid in pelvis. There is no discrete pelvic mass identified. There is a Connors catheter in the urinary bladder. IMPRESSION: Apparent constipation. Small amount of free fluid in pelvis. No other discrete evidence of acute disease. There is some limitation of detail due to the lack of administered contrast. This exam was performed using automated exposure control, adjustment of mA or kV according to patient size, and/or use of iterative reconstruction technique. Electronically signed by Mark Loera 04/06/2018 11:51 AM
[2018-04-06] MEDS: LEVAQUIN 500 MG/D5W 500 MG/100 ML IVPB IV SCH (12:36)
[2018-04-06] MEDS: MEGACE LIQUID PO SCH ×2 (12:36→21:29)
[2018-04-06] MEDS: PERCOCET-5 PO PRN ×3 (12:36→21:27)
[2018-04-06] MEDS: SODIUM CHLORIDE 0.9% INJ SCH (12:36)
--- NOTE | 2018-04-06 16:01 | PROVIDER DOCUMENTATION ---
This chart was entered by Miryam Tee Scribe, acting as scribe for Leticia Perry MD. HPI-General Adult - General Source: patient - History of Present Illness -Gen Adult Nature of Presenting Problems: Pt is 27/F presenting to ED stating the she has been vomiting and then passing out. Pt is currently undergoing chemo treatment for breast cancer. Location of Pain/Injury: reports: abdomen Pain Radiation: reports: no radiation (nausea) Severity: reports: moderate Onset/Duration: reports: unsure Timing: reports: still present Context/Activities at Onset: reports: other. denies: none (Chemo therapy) Modifying Factors: improves with: nothing Associated Symptoms: reports: denies symptoms, nausea, vomiting Similar Symptoms Previously?: No Recently seen or treated by another doctor?: No <Leticia German - Last Filed: 04/05/18 02:06> <Chuy Prado - Last Filed: 04/05/18 03:04> - General Chief Complaint: Vomiting Stated Complaint: LETHARGIC, VOMITING Time Seen by Provider: 04/05/18 00:01 Allergies/Adverse Reactions: Patient Allergies Allergy/AdvReac Type Severity Reaction Status Date / Time omeprazole [From Prilosec] Allergy HIVES Verified 03/09/18 07:44 Penicillins Allergy ANAPHYLAXIS Verified 03/09/18 07:44 Sulfa (Sulfonamide Allergy ANAPHYLAXIS Verified 03/09/18 07:44 Antibiotics) [Sulfa(Sulfonamide Antibiotics)] Home Medications: Home Medication List Medication Instructions Recorded Confirmed Last Taken Type Promethazine [Phenergan] 25 mg PO Q6H PRN PRN 5 Days #20 02/01/18 04/01/1802/18 Rx tablet Sumatriptan [Imitrex] 50 mg PO Q2H PRN PRN #30 tab 02/24/18 04/01/18 Unknown Rx Alprazolam [Xanax] 0.5 mg PO BID 04/01/18 04/01/18 Unknown History Gabapentin [Neurontin] 100 mg PO BID 04/01/18 04/01/18 Unknown History Lansoprazole [Prevacid] 30 mg PO DAILY 04/01/18 04/01/18 Unknown History Ondansetron Odt [Zofran Odt] 4 mg SL Q6H PRN PRN 04/01/18 04/01/18 Unknown History Paroxetine [Paxil] 10 mg PO DAILY 04/01/18 04/01/18 Unknown History Potassium Chloride E.r. [Klor-Con] 20 meq PO DAILY 04/01/18 04/01/18 Unknown History Hydrocodone/Acetaminophen [[place] 1 - 2 ea PO Q3-4H PRN PRN #20 tab 04/03/18 Unknown Rx 5-325 Tablet] Review of Systems - Adult - REVIEW OF SYSTEMS - ADULT Constitutional: reports: no symptoms reported. denies: chills, fever Eyes: reports: no symptoms reported Ears, Nose, Mouth & Throat: reports: no symptoms reported Cardiovascular: reports: no symptoms reported Respiratory: reports: no symptoms reported. denies: cough, shortness of breath , wheezing Gastrointestinal: reports: nausea, vomiting Genitourinary: reports: no symptoms reported Musculoskeletal: reports: no symptoms reported Integumentary: reports: no symptoms reported Neurological: reports: syncope. denies: dizziness/vertigo, headache/migraines Psychiatric: reports: no symptoms reported Endocrine: reports: no symptoms reported Hematologic/Lymphatic: reports: no symptoms reported, other <Leticia German - Last Filed: 04/05/18 02:06> Past History - Adult - PAST MEDICAL HISTORY-ADULT Review of Records: reports: Old Records Reviewed, Nursing Assessment Review, Medications Reviewed, Social history reviewed & non-contributory. Major Childhood Illnesses: reports: denies history Cardiovascular: reports: denies history Respiratory: reports: asthma Gastrointestinal: reports: denies history Obstetrical/Gynecological: reports: ovarian cysts, other (stage II breast cancer ) Genitourinary: reports: denies history Musculoskeletal: reports: denies history Neurological: reports: denies history Psychiatric: reports: depression Endocrine/Immune: reports: cancer (Stage 2 left breast cancer) Other Conditions: reports: denies history - PRIOR SURGERIES/PROCEDURES Surgical/Procedure History: reports: BTL, indwelling device (port), hernia repair, breast (breast biopsy) - IMMUNIZATION STATUS Childhood Immunizations: See Nurse Assessment Flu Vaccine: See Nurse Assessment - FAMILY HISTORY Family History: reviewed, not pertinent - SOCIAL HISTORY Smoking: denies, non-smoker Substance Use: none/never Alcohol Use Frequency: never Living Situation: family <Leticia German Filed: 04/05/18 02:06> Physical Exam-General - PHYSICAL EXAM-ADULT Initial Vital Signs Reviewed: Yes - CONSTITUTIONAL General Appearance: no apparent distress, other (appears tired at time of exam) - EYES Eyes: PERRL/EOMI - HEAD, EARS, NOSE, MOUTH & THROAT HENMT: normocephalic/atraumatic, moist mucous membranes - NECK Neck: non-tender, full range of motion, supple, normal inspection - RESPIRATORY Respiratory: chest non-tender, lungs clear, normal breath sounds - CARDIOVASCULAR Cardiovascular: normal peripheral pulses, regular rate, rhythm, no edema - GASTROINTESTINAL (ABDOMEN) Abdominal Exam: normal bowel sounds, non tender, soft - SKIN Integumentary: normal color, warm/dry - NEUROLOGIC Neurologic: grossly normal - PSYCHIATRIC Psych/Mental Status: depressed affect <Leticia German - Last Filed: 04/05/18 02:06> Progress - PLAN OF CARE/RESULTS Progress/Plan/Lab Results: Vital Signs - 8 hr 04/04/18 23:53 Temperature 97.6 F Pulse Rate 82 Respiratory Rate 16 Blood Pressure 115/82 O2 Sat by Pulse Oximetry 100 Orders Category Date Time Status ED: Orthostatic Vital Signs (E as directed Care 04/05/18 00:[address] HEAD/C-SPINE W/O CONTRAST [CT] Stat Exams 04/05/18 00:20 Ordered CBC WITH ELECTRONIC DIFF [HEME] Stat Lab 04/05/18 00:19 Uncollected CMP [COMPREHENSIVE METABOLIC PANEL] [CHEM] Stat Lab 04/05/18 00:19 Uncollected URINALYSIS W/POSS RFLX CULT [URINALYSIS] Stat Lab 04/05/18 00:21 Uncollected 0.9% Sodium Chloride Inj [Ns] 1,000 ml Med 04/05/18 00:19 Active IV 999 mls/hr Result Diagrams: 04/05/18 01:32 - CHANGE OF SHIFT REPORT (ED Provider) 1 Report Given and Care Transferred to:: Dr. Prado Time of Transfer: 02:07 Items Pending: CT/MRI Results (patient Hx, PE, DDx. discussed with Dr. Prado.) <Leticia German - Last Filed: 04/05/18 02:06> - PLAN OF CARE/RESULTS Progress/Plan/Lab Results: Vital Signs - 8 hr 04/04/18 23:53 Temperature 97.6 F Pulse Rate 82 Respiratory Rate 16 Blood Pressure 115/82 O2 Sat by Pulse Oximetry 100 Laboratory Results - last 24 hr 04/05/18 04/05/18 01:32 01:32 WBC 23.61 H RBC 3.35 L Hgb 9.9 L Hct 29.8 L MCV 89.0 MCH 29.6 MCHC 33.2 RDW Std Deviation 14.5 Plt Count 320 MPV 9.9 Immature Gran % (Auto) 0.3 Neut % (Auto) 78.8 H Lymph % (Auto) 17.5 L [place] % (Auto) 3.0 Eos % (Auto) 0.3 Baso % (Auto) 0.1 Immature Gran # (Auto) 0.08 H Neut # (Auto) 18.58 H Lymph # (Auto) 4.14 H [place] # (Auto) 0.72 H Eos # (Auto) 0.06 Baso # (Auto) 0.03 Sodium 140 Potassium 3.7 Chloride 105 Carbon Dioxide 23 L Anion Gap 12 BUN 5 L Creatinine 0.5 Estimated GFR/1.73 m2 > 60 BUN/Creatinine Ratio 10 Glucose 93 Calculated Osmolality 276 Calcium 8.9 Total Bilirubin 0.18 L AST 33 H ALT 21 Alkaline Phosphatase 126 H Total Protein 7.3 Albumin 4.1 Globulin 3.2 Albumin/Globulin Ratio 1.3 Orders Category Date Time Status ED: Orthostatic Vital Signs (E as directed Care 04/05/18 00:[address] HEAD/C-SPINE W/O CONTRAST [CT] Stat Exams 04/05/18 00:20 Taken CBC WITH ELECTRONIC DIFF [HEME] Stat Lab 04/05/18 01:32 Completed CMP [COMPREHENSIVE METABOLIC PANEL] [CHEM] Stat Lab 04/05/18 01:32 Completed URINALYSIS W/POSS RFLX CULT [URINALYSIS] Stat Lab 04/05/18 00:21 Uncollected 0.9% Sodium Chloride Inj [Ns] 1,000 ml Med 04/05/18 00:19 Discontinued IV 999 mls/hr Pt signed out to me by Dr. German, pending CT, CT negative, labs negative, pt had syncope x 2, still weak here, pt is currently living alone, will admit Result Diagrams: 04/05/18 01:32 04/05/18 01:32 <Chuy Prado - Last Filed: 04/05/18 03:04> Departure - Departure Date of Disposition Decision: 04/05/18 Time of Disposition Decision: 02:06 - Critical Care Note This patient required my direct & personal management of CC.: No <Leticia German - Last Filed: 04/05/18 02:06> - Departure Certified Medical Emergency: Emergent - Critical Care Note This patient required my direct & personal management of CC.: No <Chuy Prado - Last Filed: 04/05/18 03:04> - Departure DIAGNOSIS: Syncope Qualifiers: Syncope type: unspecified Qualified Code(s): R55 - Syncope and collapse Vomiting Qualifiers: Vomiting type: unspecified Vomiting Intractability: non-intractable Nausea presence: unspecified Qualified Code(s): R11.10 - Vomiting, unspecified Disposition: ADMITTED INPATIENT 09 Condition: Stable Referrals and Follow-Ups: None,PCP [Primary Care Provider] - Attestation - Physician/ FANNY Attestation Patient care was provided by Advanced Practice Provider:: No The physician spent face to face time with patient:: Yes Advanced Practice Provider documentation review:: Supervising physician onsite and consulted in the evaluation and care of this patient. The physician did have a face to face encounter with the patient. <Leticia German - Last Filed: 04/05/18 02:06> - Physician/ FANNY Attestation Patient care was provided by Advanced Practice Provider:: No The physician spent face to face time with patient:: Yes Advanced Practice Provider documentation review:: Supervising physician onsite and consulted in the evaluation and care of this patient. The physician did have a face to face encounter with the patient. <Chuy Prado - Last Filed: 04/05/18 03:04> This chart was documented by the indicated scribe, (Miryam Tee Scribe) and accurately reflects the services I performed and decisions made by me, Leticia Perry MD, as attested by the provider's signature.
[2018-04-06] MEDS ORDERED: NS 1,000 ML IV SCH (18:30)
--- NOTE | 2018-04-06 18:36 | GASTROENTEROLOGY CONSULTATION ---
DATE: 04/06/2018 REASON FOR CONSULTATION: Progressive odynophagia. HISTORY OF PRESENT ILLNESS: Ms. Lillian Peck is a 27-year-old woman with past medical history significant for HER2/mendel negative breast cancer, status post chemotherapy with Adriamycin and Cytoxan. Her last treatment was in the beginning of February which has been put on hold secondary to neutropenia. The patient was admitted after having 2 syncopal events and nonbloody, nonbilious emesis. She describes having several weeks of progressive odynophagia to solids and liquids, no dysphagia. She denies any melena, hematemesis, or weight loss. She does have some periumbilical abdominal pain but no change in bowel habits. She is not on any NSAIDs or blood thinners. She denies any oropharyngeal ulcers or discomfort. REVIEW OF SYSTEMS: As per HPI, otherwise 12-point review of systems negative. PAST MEDICAL HISTORY: HER2/mendel negative breast cancer, history of neutropenia, depression. PAST SURGICAL HISTORY: Hernia repair, tubal ligation, PowerPort placement, breast biopsy. SOCIAL HISTORY: No smoking, alcohol or drug use. FAMILY HISTORY: Grandmother with history of breast cancer. No family history of GI malignancies or diseases. ALLERGIES: Penicillin and sulfa. HOME MEDICATIONS: Include Xanax, Neurontin, [place], Prevacid, Zofran, Paxil, potassium chloride, Phenergan, Imitrex. PHYSICAL EXAMINATION: VITAL SIGNS: Temperature 98.0, heart rate 62, respiratory rate 16, blood pressure 103/67, O2 saturation 100% on 2 L nasal cannula. GENERAL APPEARANCE: The patient is chronically-ill appearing, well nourished, well developed, in no acute distress. HEENT: Sclerae anicteric. Moist mucous membranes. No oropharyngeal ulcers. She has some whitish coloration of her tongue. NECK: Supple, no JVD, no lymphadenopathy. CARDIAC: Regular rate and rhythm. No murmurs. LUNGS: Clear to auscultation bilaterally. ABDOMEN: Soft, nontender, nondistended with normoactive bowel sounds. No rebound or guarding. EXTREMITIES: No clubbing, cyanosis or edema. NEUROLOGIC: Nonfocal. Moving all extremities symmetrically. PSYCHIATRIC: Flat affect. LABORATORY DATA: White count is 5.0 from 23.6 yesterday. Hemoglobin is 9.8. Platelets 300,000. INR of 0.98. Sodium 140. Potassium 3.6. Chloride 106. Bicarbonate 25. BUN 4. Creatinine 0.5. LFTs yesterday showed a total bilirubin of 0.18, AST of 33, ALT of 21, alkaline phosphatase 126, ammonia of 42, CK of 103, lipase 18, lactate of 1.1. UA showed glucosuria, large leukocytes, negative nitrite. Urine toxicology positive for opiates and barbiturates. IMAGING: Head CT unremarkable. Chest x-ray normal. CT abdomen and pelvis this morning shows some fecal loading, small amount of free fluid in the pelvis. No acute process. ASSESSMENT AND PLAN: Ms. Lillian Peck is a 27-year-old woman with localized HER2-negative breast cancer who presents after having a syncopal episode likely in the setting of volume depletion. Workup thus far has been negative. She does report having progressive odynophagia and has been avoiding p.o. intake secondary to this which could have attributed to her volume depletion. Oropharynx is unremarkable on exam. She is currently on pantoprazole 40 mg IV daily, antiemetics, and Megace. She was started on antibiotics for possible infection. Her leukocytosis is secondary to receiving Granix recently. Her nausea and vomiting have resolved. She is currently on clear liquid diet which she is tolerating. Recommend keeping patient n.p.o. for plans of diagnostic EGD tomorrow to evaluate for probable esophagitis. We may need to obtain an esophageal biopsy to rule out pablito or opportunistic infections given her immunocompromised state. We will follow with you. Please call with any questions or concerns. [facility] HOSPITALL[facility]
[2018-04-06] MEDS: CLINIMIX E 4.25%-5% SOLUTION 1,000 ML IV SCH (19:22)
[2018-04-06] MEDS ORDERED: MOVANTIK PO ONE (20:00)
[2018-04-06] MEDS: MIRALAX PO SCH (21:29)
--- NOTE | 2018-04-07 04:15 | PROGRESS NOTE ---
DATE: 04/06/2018 SUBJECTIVE: The patient is more awake today. She is able to answer questions. She reports that her stomach has been hurting and that she has been having pain when she tries to swallow fluid or drink anything. OBJECTIVE: Vital Signs: Temperature 98 degrees, blood pressure 115/78, heart rate 67, respirations 18, O2 saturation is 100% on 2 L nasal cannula. HEENT: Head normocephalic, atraumatic. Heart: S1, S2 normal. Regular rate and rhythm. Lungs: Clear to auscultation bilaterally. No wheezing. No rales. No rhonchi. Abdomen: Positive bowel sounds. Soft. Mild tenderness on palpation. No rebound tenderness. Extremities: No edema, no cyanosis. No calf tenderness. Neurologic: The patient is alert and oriented x4. LABORATORY DATA: White blood cell count 5, hemoglobin 9.8, hematocrit 30, platelets 300,000. Sodium 140, potassium 3.6, chloride 106, CO2 of 25, BUN 4, creatinine 0.5, glucose 79. ASSESSMENT AND PLAN: 1. Syncope. This is likely secondary to volume depletion. The patient is more awake and alert today. We will continue to monitor the patient closely. 2. Odynophagia. Gastroenterology has been consulted. We will await further recommendations. 3. Breast cancer status post chemotherapy. Management as per Oncology. 4. Constipation. We will start the patient on MiraLAX. 5. Deep vein thrombosis (DVT) prophylaxis. Continue with SCDs. cc: Shanika Fierro MD [facility]
[2018-04-07 07:05] LABS: HEMATOCRIT 31.3 % (37.0-47.0); HEMOGLOBIN 10.4 g/dL (12.0-16.0); MCH 30.1 PG (27-31); MCHC 33.2 g/dL (33-37); MCV 90.7 FL (81-99); MPV 9.6 FL (7.4-10.4); RBC 3.45 XMIL (4.2-5.4); RDW 14.3 % (11.5-14.5); WBC 4.2 X1000 (4.8-10.8)
[2018-04-07 07:39] LABS: AGAP 9; ALB/GLOB RATIO 1.4; ALKALINE PHOSPHATASE 98 U/L (32-104); BUN 13 mg/dL (8-22); CALCIUM 8.9 mg/dL (8.8-10.2); CHLORIDE 104 mmol/L (98-107); COSMO 276; CREATININE 0.5 mg/dL (0.5-0.9); ESTIMATED GFR > 60; GLUCOSE 105 mg/dL (70-104); GOT 21 U/L (10-30); GPT 16 U/L (10-36); POTASSIUM 4.1 mmol/L (3.5-5.1); SODIUM 138 mmol/L (136-145); TCO2 25 mmol/L (25-35); TOTAL PROTEIN 6.9 g/dL (6.3-8.3)
[2018-04-07] MEDS ORDERED: XYLOCAINE-MPF 2% ONE (08:06)
[2018-04-07] MEDS ORDERED: DIPRIVAN 1% ONE (08:07)
--- NOTE | 2018-04-07 09:04 | EKG Report ---
Test Performed on : 04/05/2018 07:34:02 AM Test Reason : Syncope Blood Pressure : / mmHG Vent. Rate : 066 BPM Atrial Rate : 066 BPM P-R Int : 178 ms QRS Dur : 076 ms QT Int : 404 ms P-R-T Axes : 064 026 025 degrees QTc Int : 423 ms Normal sinus rhythm. with sinus arrhythmia. Normal ECG When compared with ECG of 12-NOV-2017 21:42, No significant change was found Confirmed by Larry Brody MD ([id number]) on 04/10/2018 4:13:13 PM
[2018-04-07] MEDS: SODIUM CHLORIDE 0.9% INJ SCH (09:25)
[2018-04-07] MEDS: MEGACE LIQUID PO SCH ×2 (09:25→20:33)
[2018-04-07] MEDS: PROTONIX IV SCH ×2 (09:26→20:34)
[2018-04-07] MEDS: EFFEXOR XR PO SCH (09:26)
[2018-04-07] MEDS: MIRALAX PO SCH ×2 (09:26→20:34)
[2018-04-07] MEDS: PAXIL PO SCH (09:26)
[2018-04-07] MEDS: CARAFATE PO SCH ×3 (09:28→20:33)
[2018-04-07] MEDS: CENTRUM SILVER PO SCH (09:29)
[2018-04-07] MEDS: CLINIMIX E 4.25%-5% SOLUTION 1,000 ML IV SCH (09:29)
--- NOTE | 2018-04-07 11:01 | OPERATIVE NOTE ---
PROCEDURE DATE: 04/06/2018 TITLE OF PROCEDURE: 1. Esophagogastroscopy with the gastric biopsy. PREOPERATIVE DIAGNOSES: 1. Odynophagia. 2. Breast cancer on chemotherapy per Dr. Rosen. 3. Nausea, vomiting. 4. Anemia. POSTOPERATIVE DIAGNOSES: 1. Esophagitis distal esophagus LA grade 1. 2. Z-line was at 42 cm. 3. Evidence of gastritis of the body. Biopsy. 4. Bile in the stomach noted. 5. Normal fundus, cardia, incisura. 6. Duodenal bulb showed evidence of duodenitis with superficial ulcer in duodenal bulb measuring about 0.5 cm. 7. Normal 2nd and 3rd portion of duodenum. ESTIMATED BLOOD LOSS: Minimal. COMPLICATIONS: None. ANESTHESIA: Monitored anesthesia care per Anesthesia Service. Random gastric biopsy. PROCEDURE: After informed consent from the patient, I explained the risks, benefits, indications, alternatives to the procedure. The patient was prepared for EGD. The risks of the procedure, including infection, bleeding, pain, trauma to the surrounding structures, perforation, , were explained to the patient among others, and she acknowledged and agreed to proceed with the procedure. The patient was brought to the OR. She was turned in a left lateral position. A bite block was placed in patient mouth. After adequate monitored anesthesia care, the upper scope was introduced through the oral vestibule, advanced was all the way to the second and third portion of duodenum. The esophagus showed evidence of erythema in the distal esophagus suggesting esophagitis. Z- line visualized at 42 cm. This was slightly irregular. The stomach showed evidence of erythema in the body and antrum. This was biopsied. There was evidence of bile in the stomach. This was suctioned out. Retroflexion revealed normal fundus, cardia, incisura. The duodenal bulb showed evidence of erythema, friability, erosions, and a small superficial ulcer measuring about 0.5 cm. The second and third portion of duodenum appeared normal. The air was withdrawn. I did not visualize any evidence of any rings in the esophagus. The air was withdrawn. The patient tolerated the procedure well and was monitored in the OR in stable and satisfactory condition. RECOMMENDATIONS: 1. The patient will be on a full liquid diet today and advance as tolerated. 2. We will increase the Protonix to twice daily and then on discharge, we will keep her on Protonix once daily for 3 months. 3. We will start her on Carafate 1 g 6 hours for 6 weeks. 4. She will continue bowel regimen with MiraLAX. 5. We will start her on multivitamin for anemia. 6. She will follow up in the clinic in 3 weeks after discharge to follow up on the biopsy results. Further recommendations to follow pending hospital course. Please call us with any questions. cc: MD Luis Vargas MD Alexis R. Penot, MD MTDD
--- NOTE | 2018-04-07 11:09 | HEMO/ONC CONSULTATION ---
DATE: 04/05/2018 ADMITTING PHYSICIAN: Alfredo Gong MD REQUESTING PHYSICIAN: Alfredo Gong MD We appreciate this consult. CHIEF COMPLAINT: Breast cancer. HISTORY OF PRESENT ILLNESS: Ms. Baron is a very pleasant, 27-year-old, female well known to Dr. Rosen with a history of hormone positive left breast cancer, HER-2/mendel negative. The patient has completed treatment with chemotherapy and is awaiting mastectomy. Mastectomy has been delayed secondary to recurrent neutropenia and profound weakness and fatigue. The patient presented to [facility] the day of admission secondary to nausea, vomiting and syncope. The patient underwent CT of the head, which was negative for any acute injury. Additionally, she underwent CT of the abdomen and pelvis which revealed constipation. No other acute problems. The patient is admitted for volume depletion, syncope. We are consulted as the patient is well known to us. PAST MEDICAL HISTORY: 1. Hormone-positive breast cancer. 2. Depression. PAST SURGICAL HISTORY: 1. Breast biopsy. 2. Hernia repair. 3. Tubal ligation. 4. PowerPort placement. SOCIAL HISTORY: The patient does not use tobacco, alcohol or illicit drugs. FAMILY HISTORY: Negative for any hematologic or oncologic disease. MEDICATIONS ON ADMISSION: 1. Xanax. 2. Neurontin. 3. [place]. 4. Prevacid. 5. Zofran. 6. Paxil. 7. Potassium chloride. 8. Phenergan. 9. Imitrex. ALLERGIES: The patient is allergic to Omeprazole, penicillin and sulfa. REVIEW OF SYSTEMS: A 14-point review of systems was obtained and is negative except for as mentioned in history of present illness. PHYSICAL EXAMINATION: General: Ms. Baron is a 27-year-old, female lying supine in bed in no immediate distress. She does appear quite lethargic. Vital Signs: Temperature 98.1, blood pressure 106/69, heart rate 63, respirations 16, O2 saturation 100% on 2 L nasal cannula O2. HEENT: Normocephalic, atraumatic. Mucous membranes pale and moist. Sclerae anicteric. Extraocular movements intact. Neck: Supple. Lungs: Clear to auscultation bilaterally. Chest expansion equal bilaterally. CARDIOVASCULAR: S1, S2 is heard without murmur, rub or gallop. Abdomen: Nondistended. Extremities: No clubbing, cyanosis, or edema. Dermatologic: No rashes, bruises or lesions. Neurologic: The patient is somnolent. She is oriented x3. She has no focal deficits. LABORATORY DATA: Hemoglobin 9.9, hematocrit 29.8, white blood cell count 23.61, platelet count 320,000. ANC 18.58. INR 0.98. Sodium 140, potassium 3.7, chloride 105, CO2 is 23, BUN 5, creatinine 0.5, and glucose is 93. Bilirubin 0.18, AST 33, ALT 21, alkaline phosphatase 126. Ammonia is 42. ASSESSMENT AND PLAN: 1. Hormone positive breast cancer status post chemotherapy, awaiting mastectomy, which has been delayed secondary to recurrent neutropenia and profound weakness. We will follow along and reschedule surgical evaluation when appropriate. 2. Syncope. Likely multifactorial. The patient has been experiencing nausea and vomiting as well as volume depletion. Additionally, the patient is on antianxiety medication with pain medication. CT of the head was obtained, which was negative for any acute abnormality. Workup is pending. 3. Nausea, vomiting, volume depletion. The patient is on IV fluids. Vomiting has improved significantly on Zofran and Phenergan. 4. Leukocytosis, status post Granix. We will follow along with you and make further recommendations pending outcomes. The above reflects the history, examination, assessment and plan of Dr. Rosen. Dictated by MELISSA Palomares for Luis Rosen MD cc: MELISSA Palomares MD
[2018-04-07] MEDS: LEVAQUIN 500 MG/D5W 500 MG/100 ML IVPB IV SCH (12:19)
--- NOTE | 2018-04-07 13:35 | ECHO REPORT ---
ORDER DATE: 04/05/2018 MEASUREMENTS: Left ventricular end-diastolic diameter 4.4, end systolic diameter 3.3, septal thickness 0.7, posterior wall thickness 0.7, aortic root 2.7, left atrium 2.8. SUMMARY: 1. Adequate quality study. 2. Aortic valve is trileaflet and opens normally on 2-dimensional images. Peak gradient across the aortic valve is less than 10 mmHg. There is trace aortic regurgitation. Mitral, tricuspid and pulmonic valves are without evidence of structural abnormality with trace mitral regurgitation, mild tricuspid regurgitation, and mild pulmonic insufficiency. Estimated systolic PA pressure by Doppler is 25 to 30 mmHg. The aortic root is normal in size. 3. Normal left ventricular dimensions demonstrated. Estimated left ventricular ejection fraction appears to be 50 to 55 percent. No regional wall motion abnormalities are evident. Left atrium, right atrium, right ventricle are normal in size with grossly preserved right ventricular systolic function. 4. No pericardial effusion. 5. Appearance of inferior vena cava suggests normal central venous pressure. cc: Shane Sharpe MD
--- NOTE | 2018-04-07 20:41 | PROGRESS NOTE ---
DATE: 04/07/2018 SUBJECTIVE: The patient is resting comfortably in bed. She just returned from her EGD. She has no complaints. OBJECTIVE: Vital Signs: Temperature 98.1 degrees, blood pressure 108/73, heart rate 69, respiratory rate 16, O2 saturations 95% on 1 L nasal cannula. General: This is a young female sitting up in bed in no acute distress. Heart: S1, S2 normal. Regular rate and rhythm. Lungs: Equal air entry bilaterally. Abdomen: Positive bowel sounds. Soft, nontender , nondistended. Extremities: No edema, no cyanosis. Neuro: The patient is alert and oriented x3. LABS: White blood cell count 4.2, hemoglobin 10, hematocrit 31, platelets 348, 000, sodium 138, potassium 4.1, chloride 104, CO2 25, BUN 13, creatinine 0.5, glucose 105. ASSESSMENT AND PLAN: 1. Duodenal bulb ulcer and duodenitis. Continue on Protonix and Carafate. 2. Esophagitis. Continue on Protonix and Carafate. 3. Gastritis. Continue on Protonix and Carafate. 4. Syncope. Resolved. Most likely secondary to volume depletion. 5. Anemia. Stable. 6. Breast cancer status post chemotherapy. Management as per Oncology. cc: Shanika Fierro MD [facility]
[2018-04-08] MEDS: CLINIMIX E 4.25%-5% SOLUTION 1,000 ML IV SCH ×3 (00:47→20:54)
[2018-04-08] MEDS: CARAFATE PO SCH (02:32)
[2018-04-08 08:17] LABS: AGAP 9; BUN 13 mg/dL (8-22); CHLORIDE 104 mmol/L (98-107); COSMO 272; CREATININE 0.5 mg/dL (0.5-0.9); ESTIMATED GFR > 60; GLUCOSE 100 mg/dL (70-104); POTASSIUM 4.3 mmol/L (3.5-5.1); SODIUM 136 mmol/L (136-145); TCO2 23 mmol/L (25-35)
[2018-04-08 08:53] LABS: BASO# 0.02 X1000 (0.0-0.2); BASO% 0.5 % (0.0-0.8); EOS# 0.09 X1000 (0.0-0.7); EOS% 2.1 % (0.0-10.0); HEMOGLOBIN 10.8 g/dL (12.0-16.0); LYMPH% 72.8 % (20.5-51.1); MCH 29.3 PG (27-31); MCHC 32.7 g/dL (33-37); MCV 89.4 FL (81-99); MONO# 0.42 X1000 (0.11-0.59); MONO% 9.9 % (1.7-9.3); MPV 9.9 FL (7.4-10.4); NEUT# 0.63 X1000 (1.4-6.5); NEUT% 14.7 % (42.2-75.2); PLT 368 X1000 (130-400); RBC 3.69 XMIL (4.2-5.4); RDW 14.4 % (11.5-14.5); WBC 4.26 X1000 (4.8-10.8)
--- NOTE | 2018-04-08 09:20 | PROVIDER PROGRESS NOTE ---
Progress Note - - SUBJECTIVE: EGD yesterday. No acute overnight events. No N/V/F. No recurrent syncope. Patient is tolerating full liquids. OBJECTIVE: Last Vital Signs Temp 97.9 F 04/08/18 07:43 Pulse 80 04/08/18 07:43 Resp 14 04/08/18 07:43 BP 113/76 04/08/18 07:43 Pulse Ox 98 04/08/18 08:52 Height 5 ft 3 in Weight 117 lb GEN: awake, alert, NAD HEENT: anicteric, MMM NECK: supple, no JVD CV: RRR, no murmurs ABD: soft NT/ND, NABS EXT: no cce, WWP NEURO: nonfocal LABS: 04/08/18 04/08/18 07:10 07:10 WBC 4.26 L Hgb 10.8 L Plt Count 368 Sodium 136 Potassium 4.3 Chloride 104 Carbon Dioxide 23 L BUN 13 Creatinine 0.5 EGD 04/07/2018 POSTOPERATIVE DIAGNOSES: 1. Esophagitis distal esophagus LA grade 1. 2. Z-line was at 42 cm. 3. Evidence of gastritis of the body. Biopsy. 4. Bile in the stomach noted. 5. Normal fundus, cardia, incisura. 6. Duodenal bulb showed evidence of duodenitis with superficial ulcer in duodenal bulb measuring about 0.5 cm. 7. Normal 2nd and 3rd portion of duodenum. A/P: Ms. Lillian Peck is a 27-year-old woman with localized HER2-negative breast cancer admitted after having a syncopal episode in the setting of volume depletion from nausea, vomiting, and poor PO intake. Workup thus far has been negative. GI consulted for N/V and progressive odynophagia. EGD yesterday was only revealing for Grade A esophagitis and gastritis. Stomach biopsies pending. Patient on PPI and tolerating full liquids. No further N/V since admission. #Nausea/vomiting: transition to PO PPI once daily upon discharge; antiemetics as needed; consider ensure with meals given FFT #Gastritis: biopsies pending; on PPI as above #Esophagitis: grade A; PPI as above; no indication for carafate at this time given mild in severity #Breast cancer: oncology following; appreciate recs #Anemia: suspect related to chemo; no overt bleeding #Leukocytosis: resolved #Syncopal episode: no recurrence; workup negative; minimize sedating meds Patient will need follow-up with GI in 2-4 weeks after discharge. Please call with questions or concerns
[2018-04-08] MEDS: PAXIL PO SCH (09:48)
[2018-04-08] MEDS: MEGACE LIQUID PO SCH ×2 (09:48→20:49)
[2018-04-08] MEDS: EFFEXOR XR PO SCH (09:48)
[2018-04-08] MEDS: MIRALAX PO SCH ×2 (09:48→20:49)
[2018-04-08] MEDS: PROTONIX IV SCH ×2 (09:48→20:50)
[2018-04-08] MEDS: CENTRUM SILVER PO SCH (09:48)
--- NOTE | 2018-04-08 17:09 | PROGRESS NOTE ---
DATE: 04/08/2018 SUBJECTIVE: Patient resting comfortably in bed. She had EGD done yesterday. OBJECTIVE: Vital signs: Temperature 97.8 degrees, pulse 81, respiratory rate 16, blood pressure 108/69, HEENT: Patient is atraumatic, normocephalic. Cardiovascular: S1, S2. Respiratory system: Has evidence of good air entry bilaterally. Abdomen: Soft, nontender. No masses felt. Extremities: No evidence of edema. Central nervous system: No obvious focal deficit noted. LABORATORY DATA: WBCs 4.26, hematocrit is 33, with a platelet count of 368, 000. Sodium is 136, potassium is 4.3, chloride is 104, bicarbonate 23, BUN is 13, creatinine 0.5. ASSESSMENT AND PLAN: 1. Peptic ulcer disease. Continue patient on PPI as well as Carafate. Patient started on a GI soft diet, and we will advance diet as tolerated. 2. Syncope. This seems to have resolved. 3. Anemia. Follow up on hemoglobin and hematocrit. Transfuse packed red blood cells if needed. 4. History of breast cancer. Follow up with Oncology as an outpatient. DISPOSITION: The patient can possibly be discharged home tomorrow if she is clinically stable. cc: Rk Anthony MD [facility]
[2018-04-08] MEDS: PERCOCET-5 PO PRN (18:12)
[2018-04-08] MEDS: SODIUM CHLORIDE 0.9% INJ SCH (20:50)
[2018-04-09] MEDS: CLINIMIX E 4.25%-5% SOLUTION 1,000 ML IV SCH ×2 (00:56→13:11)
--- NOTE | 2018-04-09 09:57 | PROVIDER PROGRESS NOTE ---
Progress Note - - SUBJECTIVE: No acute overnight events. No N/V/F, CP, SOB, abdominal pain. Tolerating GI soft diet. +BMs OBJECTIVE: Last Vital Signs Temp 98.6 F 04/09/18 07:42 Pulse 77 04/09/18 07:42 Resp 16 04/09/18 07:42 BP 101/67 04/09/18 07:42 Pulse Ox 100 04/09/18 08:49 Height 5 ft 3 in Weight 117 lb GEN: awake, alert, NAD HEENT: anicteric, MMM NECK: supple, no LAD CV: RRR, no murmurs PULM: CTAB no wheezing ABD: soft NT, ND, NABS no rebound or guarding EXT: no cce NEURO: nonfocal LABS: 04/08/18 07:10 WBC 4.26 L Hgb 10.8 L Plt Count 368 A/P: A/P: Ms. Lillian Peck is a 27-year-old woman with localized HER2- negative breast cancer admitted after having a syncopal episode in the setting of volume depletion from nausea, vomiting, and poor PO intake. Workup thus far has been negative. GI consulted for N/V and progressive odynophagia. EGD 04/07 was only revealing for Grade A esophagitis and gastritis. Stomach biopsies pending. Patient on PPI and tolerating. No GI complaints. Patient reports improvement in odynophagia #Nausea/vomiting: transition to PO PPI once daily upon discharge; antiemetics as needed; consider ensure with meals given FFT #Gastritis: biopsies pending; on PPI as above #Esophagitis: grade A; PPI as above #Breast cancer: oncology following; appreciate recs #Anemia: suspect related to chemo; no overt bleeding #Leukocytosis: resolved #Syncopal episode: no recurrence; workup negative; minimize sedating meds Patient OK to be discharged from GI perspective. Recommend follow-up upon discharge. Please call with questions
[2018-04-09] MEDS: PAXIL PO SCH (10:10)
[2018-04-09] MEDS: EFFEXOR XR PO SCH (10:10)
[2018-04-09] MEDS: SODIUM CHLORIDE 0.9% INJ SCH (10:10)
[2018-04-09] MEDS: MIRALAX PO SCH (10:10)
[2018-04-09] MEDS: MEGACE LIQUID PO SCH (10:10)
[2018-04-09] MEDS: CENTRUM SILVER PO SCH (10:10)
[2018-04-09] MEDS: PROTONIX IV SCH (10:10)
[2018-04-09 11:52] VITALS: BP 101/67
--- NOTE | 2018-04-09 21:26 | DISCHARGE SUMMARY ---
ADMISSION DATE: 04/05/2018 DISCHARGE DATE: 04/09/2018 PRINCIPAL DIAGNOSIS: Syncope. SECONDARY DIAGNOSES: 1. Possible dehydration. 2. Peptic ulcer disease. 3. Anemia. 4. History of breast cancer. DISCHARGE MEDICATIONS: Include the followin. Phenergan 25 every 6 hours as needed. 2. Sumatriptan 50 mg every 2 hours as needed. 3. Xanax 0.5 mg p.o. twice a day. 4. Gabapentin 100 mg p.o. twice a day. 5. Prevacid 30 mg p.o. daily. 6. Potassium chloride 20 mEq p.o. daily. 7. Hydrocodone/acetaminophen 1 to 2 every 3 to 4 hours as needed. CONSULTATIONS DONE THIS HOSPITAL STAY: 1. Dr. Arron Hughes, Gastroenterology. 2. Dr. Luis Rosen, Hematology/Oncology. SPECIAL PROCEDURES DONE DURING THIS HOSPITAL STAY: 1. Two-dimensional echocardiogram, 03/16/2018. 2. CT scan abdomen and pelvis, 04/06/2018. 3. Esophagogastroduodenoscopy, 04/07/2018. HOSPITAL COURSE: Ms. Lillian Peck is 27-year-old female who has a history of localized HER2 negative right breast cancer, who presents after having a syncopal episode likely in the setting of volume depletion. Workup negative so far. The patient reports having progressive odynophagia and also avoiding oral intake. The patient was seen by the GI team. She subsequently had an EGD done which was only revealing for grade A esophagitis as well as gastritis. The patient was placed on a GI soft diet and was advanced as tolerated. She seemed to have done well. As she is stable, she can now be discharged home. She will need to follow up with her primary care physician, and she will also need to follow up with the oncologist with regard to her history of breast cancer. cc: Rk Anthony MD
== END 2018-04-09 15:24 | disposition home or self-care (01) | DRG 640 ==
LOC: ED 23:48 → 3N 04-05 07:31 → SUATTDRO 04-05 07:31
PROVIDERS: ATTEND Internal Medicine
CPT/HCPCS: 70450; 71010; 71045; 72125; 74176; 80048; 80053; 80101; 80301; 80307; 80324; 80345; 80346; 80353; 80358; 80361; 80365; 81001; 82140; 82550; 82805; 82948; 83605; 83690; 83735; 83992; 84100; 84484; 85025; 85027; 85379; 85610; 85730; 87088; 88305; 88312; 93005; 93010; 93306; 94761; 94762; 94799; 96361; 96374; 96375; 96376; 99282; 99285; A9270; C9113; G0431; G0434; G0479; G0480; J1885; J1956; J2270; J2310; J2405; J7030; J7040; S0164; S0179; XXXXX